=== PATIENT | female | born 1960 ===

== ENCOUNTER 2019-02-14 06:37 | Inpatient (IN) | payer BC ==
--- NOTE | 2019-02-03 19:13 | HP ---
HISTORY AND PHYSICAL: DATE OF ADMISSION/SURGERY: 02/14/19 DATE OF OFFICE VISIT: 02/03/19 SURGEON: Laxmi Olson MD * (DICTATED BY LUIS OLIVAS) PROCEDURE: Bilateral total knee arthroplasties. CHIEF COMPLAINT: Bilateral knee pain. HISTORY OF PRESENT ILLNESS: Ms. Lee is a 58-year-old female with complaints of bilateral knee pain secondary to end-stage osteoarthritis. She has failed conservative treatment and elected to proceed with bilateral total knee arthroplasties. PAST MEDICAL HISTORY: Denies. PAST SURGICAL HISTORY: Two prior right knee surgeries, a right carpal tunnel release, and a tubal ligation. CURRENT MEDICATIONS: Tramadol as needed. ALLERGIES: No known drug allergies. FAMILY HISTORY: Stroke and diabetes. SOCIAL HISTORY: She is a 58-year-old female. She lives with her . She does not smoke or use drugs. Uses occasional alcohol. REVIEW OF SYSTEMS: A complete 14-point review of systems was reviewed with the patient. It was all negative or noncontributory. She denies history of DVT, PE , hepatitis, HIV, or anesthesia problems. PHYSICAL EXAMINATION GENERAL: She is well developed, well nourished, in no acute distress. VITAL SIGNS: She stands 70 inches tall, weighs 193 pounds. Her blood pressure is 133/86 and her heart rate is 74. HEENT: Normocephalic, atraumatic. NECK: Supple. No palpable lymph nodes. PULMONARY: The lungs are clear to auscultation bilaterally. CARDIO: Regular rate and rhythm. Strong S1, S2. ABDOMEN: Soft, nontender, nondistended. NEUROLOGICAL: She is alert and oriented x3. MUSCULOSKELETAL: Bilateral lower extremities: The skin is intact. There are no open wounds or abrasions. She has moderate bilateral knee effusions, tenderness over the medial and lateral joint lines of both knees. She walks with an antalgic- type gait. She has 2+ dorsalis pedis pulse, intact sensation. She is able to dorsiflex and plantarflex her bilateral lower extremities. ASSESSMENT AND PLAN: Ms. Lee is a 58-year-old female with bilateral knee pain secondary to end-stage osteoarthritis. She has failed conservative treatment and elected to proceed with bilateral total knee arthroplasties. The surgery is scheduled for 02/14/[address] Olson discussed the risks and benefits of the surgery at today's visit and all of her questions were answered. She will follow up with Dr. Olson 2 weeks after the surgery. LUIS COATES [id number]/[facility] #: [id number] PARKER
[~2019-02-14 06:37] MED LIST: Buffered Lidocaine 1% SYRIN* 1 ML/SYRINGE INTRADERM ONE; Dexamethasone TAB* 4 MG PO ONE; DiMENhydriNATE IV* 50 MG/ML VIAL IV PUSH PRN; Famotidine IV* 10 MG/ML 2 ML (20 mg) IV ONE; Gabapentin CAP(*) 300 MG PO ONE; Lactated Ringers 1000 ML Bag* 1,000 ML IV SCH; Morphine 4 MG/ML VIAL (1 ml) 4 MG/ML VIAL IV PRN; Naloxone* 0.4 MG/ML 1 ML VIAL IV PRN; Ondansetron TAB* 4 MG PO ONE; PROCHLORPERAZINE INJ 5 MG/ML 2 ML VIAL IV PRN; Scopolamine 1.5 mg* PATCH TRANSDERM PRN; Tranexamic Acid 1,000 MG in NS 0.9% 50 ML* (outpatient use) IV SCH; fentaNYL* 50 MCG/ML 2 ML VIAL (100 MCG VIAL) IV PRN; oxyCODONE/Acetamin 5/325 MG* TAB PO PRN
--- OUTSIDE RECORDS SUMMARY | 2019-02-14 06:42 | XMS REPORT | Continuity of Care Document ---
:1960 External Reference #:[id number] Author Name Marimar Rodriguez Care Team Providers Name Role Phone Jose L Sharpe MD Primary Care Physician Unavailable Payers Date Identification Numbers Payment Provider Subscriber Policy Number: [id number] BS Facets Nicole Lee PayID: [id number] [address] [address] [place] [address] Advance Directives Description No Information Available Problems Date Description Provider Status Onset: 09/05/2018 Localized, primary osteoarthritis Laxmi Olson M.D. Active Onset: 09/23/2018 Localized, secondary osteoarthritis Laxmi Olson M.D. Active Family History Date Family Member(s) Observation Comments General Diabetes General Hypertension Onset: () General Stroke General Cancer General Rheumatoid Arthritis Social History Type Date Description Comments Sex Unknown Lives With Tobacco Use Start: Unknown Patient has never smoked Smoking Status Reviewed: 02/03/19 Patient has never smoked Allergies, Adverse Reactions, Alerts Description No Known Drug Allergies Medications Medication Date Status Form Strength Qnty SIG Indications Ordering Provider Tramadol HCL Active Tablets 50mg 60tabs 1 tab Laxmi 019 every 8 WesleyMarietta bookerDKelvin hours as needed for pain Tylenol Active Unknown 000 Aleve Active Unknown 000 Percocet Hx Tablets 5-325mg 42tabs 1-2 by Laxmi 018 - mouth Ariana Olson every 6 019 hours as needed pain Keflex Hx Capsules 500mg 20caps 1 by Laxmi 018 - mouth 4 WesleyAriana booker times a 019 day for 5 days Aspirin Hx Tablets 325mg 14tabs take 1 by Laxmi 018 - mouth Ariana Olson once a 019 day for two weeks Meloxicam Hx Tablets 15mg 30tabs 1 by M17.0 Laxmi Braga - mouth Ariana Olson every day 019 Tramadol HCL Hx Tablets 50mg 60tabs 1 tablet M17.0 Laxmi 018 - by mouth Ariana Olson every 6 019 hours as needed pain No Active Hx Unknown Medications 016 - 018 Hydrocodone-Ac Hx Tablets 5-325mg 1 by Unknown etaminophen 000 - mouth every 4-6 016 hours prn. Medications Administered in Office Medication Date Status Form Strength Qnty SIG Indications Ordering Provider Depomedrol Administered Injection Laxmi 40MG Omi Olson M.D. Depomedrol Administered Injection Laxmi 40MG Omi Olson M.D. Immunizations Description No Information Available Vital Signs Date Vital Result Comment 02/03/2019 1:12pm Height 70 inches 5'10" Weight 193.00 lb BP Systolic 133 mmHg BP Diastolic 86 mmHg Respiratory Rate 16 /min Pain Level 3 BMI (Body Mass Index) 27.7 kg/m2 12/02/2018 2:48pm Height 70 inches 5'10" Weight 186.00 lb Heart Rate 80 /min BP Systolic 150 mmHg BP Diastolic 80 mmHg BMI (Body Mass Index) 26.7 kg/m2 10/31/2018 1:50pm Height 69.5 inches 5'9.50" Heart Rate 76 /min BP Systolic 142 mmHg BP Diastolic 84 mmHg Respiratory Rate 18 /min Body Temperature 97.8 F Pain Level 3 09/23/2018 2:14pm Height 69.5 inches 5'9.50" Weight 194.00 lb Heart Rate 80 /min Respiratory Rate 16 /min Pain Level 4 BMI (Body Mass Index) 28.2 kg/m2 09/05/2018 4:21pm Height 69.5 inches 5'9.50" Weight 194.00 lb Heart Rate 76 /min BP Systolic 160 mmHg BP Diastolic 98 mmHg BMI (Body Mass Index) 28.2 kg/m2 12/04/2016 2:26pm Height 71 inches 5'11" Weight 187.00 lb Pain Level 0 BMI (Body Mass Index) 26.1 kg/m2 10/30/2016 2:09pm Height 71 inches 5'11" Respiratory Rate 17 /min Pain Level 5 09/29/2016 11:17am Height 71 inches 5'11" Heart Rate 73 /min BP Systolic Sitting 168 mmHg BP Diastolic Sitting 91 mmHg Pain Level 2 Results Test Date Facility Test Result H/L Range Note Laboratory test 10/18/2018 [facility] Surgical SEE RESULT [address] [place] [address] [phone] 1 SEE RESULT BELOW Name: REJINICOLE : [address]: Laxmi Olson MD Acct: [id number] Unit: [id number] AGE: 58 Location: OR Re10/18/18 SEX: F Status: [facility] SPEC: [id number] NABEEL: 10/18/18- SUBM DR: Laxmi Olson MD REQ: [id number] RECD: 10/18/18 STATUS: SOUT _ ORDERED: LEVEL 1 FINAL DIAGNOSIS Knee, right, hardware removal: Foreign body (orthopedic hardware) (gross diagnosis) PRE-OPERATIVE DIAGNOSIS Pain in right knee, effusion right knee, osteoarthritis right knee. GROSS DESCRIPTION The specimen is received fresh labeled, Right Knee Hardware, and consists of a 5.0 by up to 0.6 cm jacob metallic partially threaded Cam-headed screw. Received separately in the same container is a 1.5 x 1.4 x 0.2 cm jacob metallic annular fragment with multiple attached silver metallic pins ranging from 0.6 x 0.1 cm to 1.6 x 0.2 cm. The following inscription is identified: [id number]. Per established hospital medical staff protocol, no tissue is submitted. Gross only. Signed by and Reported on: Oj Marshall MD [id number] END OF REPORT DEPARTMENT OF PATHOLOGY, [address] [place] [address] Oj Marshall M.D. Director [facility] # [id number] Procedures Date Code Description Status 10/18/2018 Removal Implant Deep Wire,Screw Nail,Karl Or Plate Completed 10/18/2018 Removal Implant Deep Wire,Screw Nail,Karl Or Plate Completed 10/18/2018 Removal Implant Deep Wire,Screw Nail,Karl Or Plate Completed 09/23/2018 Inject/Drain Joint/Bursa Major W/O US Completed 09/05/2018 Inject/Drain Joint/Bursa Major W/O US Completed Encounters Type Date Location Provider Dx Diagnosis Office Visit 09/23/2018 Orthopedic Laxmi Wesley, M25.562 Pain in left knee 2:15p [facility]. M25.561 Pain in right knee M25.461 Effusion, right knee M25.462 Effusion, left knee M17.31 Unilateral post-traumatic osteoarthritis, right knee M17.12 Unilateral primary osteoarthritis, left knee T85.848A Pain due to other internal prosth dev/grft, init Office Visit 09/05/2018 4:00p Orthopedic Services Laxmi Olson, M25.562 Pain in left Of [facility]AKelvin Joyner. knee M25.561 Pain in right knee M25.461 Effusion, right knee M25.462 Effusion, left knee M17.31 Unilateral post-traumatic osteoarthritis, right knee M17.12 Unilateral primary osteoarthritis, left knee Office Visit 12/04/2016 2:30p Orthopedic Boubacar S93.401D Sprain of Services [facility] Ariana Garcia unspecified C.[facility]. ligament of right ankle, subs encntr M20.5x9 Other deformities of toe(s) (acquired), unspecified foot Office Visit 10/30/2016 2:00p Orthopedic Boubacar S93.401D Sprain of [facility] Ariana Garcia unspecified C.M.A. ligament of right ankle, subs encntr M20.5x9 Other deformities of toe(s) (acquired), unspecified foot Office Visit 09/29/2016 11:00a Orthopedic Boubacar S93.401A Sprain of [facility] Garcia unspecified C.M.A. ligament of right ankle, init encntr Plan of Treatment Future Appointment(s):02/27/2019 2:15 pm - Laxmi Olson M.D. at [facility]02/14/2019 8:00 am - Edmund Brito PA-C at [facility]02/14/2019 8:00 am - LUIS Mclaughlin at [facility]02/14/2019 8:00 am - Laxmi Olson M.D. at [facility]02/03/2019 - Laxmi Olson M.D.M17.0 Bilateral primary osteoarthritis of kneeFollow up:Follow up: 2 weeks after tkogkfxF53.561 Pain in right kneeM25.562 Pain in left knee
--- OUTSIDE RECORDS SUMMARY | 2019-02-14 06:42 | XMS REPORT | Continuity of Care Document ---
:1960 External Reference #:[id number] Author Name LUIS Mclaughlin Address [address] , [place] [address] Care Team Providers Name Role Phone Jose L Sharpe MD Primary Care Physician Unavailable Payers Date Identification Numbers Payment Provider Subscriber Policy Number: [id number] BS Facets Nicole Mendoza PayID: [id number] [address] [address] [place] [address] Advance Directives Description No Information Available Problems [...] 60tabs 1 tab Laxmi 019 every 8 Ariana Olson hours as needed for pain Tylenol Active Unknown 000 Aleve Active Unknown 000 Percocet Hx Tablets 5-325mg 42tabs 1-2 by Laxmi 018 - mouth Ariana Olson every 6 019 hours as needed pain Keflex Hx Capsules 500mg 20caps 1 by Laxmi 018 - mouth 4 Ariana Olson times a 019 day for 5 days Aspirin Hx Tablets 325mg 14tabs take 1 by Laxmi Braga - everardo Olson M.D. once a 019 day for two weeks Meloxicam Hx Tablets 15mg 30tabs 1 by Magui0 Laxmi Braga - everardo Olson M.D. every day 019 Tramadol HCL Hx Tablets [...] Date Facility Test Result H/L Range Note CBC Auto Diff 02/03/2019 [facility] White Blood 7.0 10^3/uL N 3.5-10.[address] [place] [address] [phone] Red Blood Count 4.54 10^6/uL N 4.00-5.40 Hemoglobin 13.9 g/dL N 12.0-16.0 Hematocrit 41 % N 35-47 Mean Corpuscular Volume 91 fL N 80-97 Mean Corpuscular Hemoglobin 31 pg N 27-31 Mean Corpuscular HGB Conc 33 g/dL N 31-36 Red Cell Distribution Width 13 % N 10.5-15 Platelet Count 214 10^3/uL N 150-450 Mean Platelet Volume 8.1 fL N 7.4-10.4 Abs Neutrophils 4.7 10^3/uL N 1.5-7.7 Abs Lymphocytes 1.8 10^3/uL N 1.0-4.8 Abs Monocytes 0.3 10^3/uL N 0-0.8 Abs Eosinophils 0.1 10^3/uL N 0-0.6 Abs Basophils 0 10^3/uL N 0-0.2 Abs Nucleated RBC 0 10^3/uL Granulocyte % 66.6 % Lymphocyte % 25.8 % Monocyte % 4.9 % Eosinophil % 2.0 % Basophil % 0.7 % Nucleated Red Blood Cells % 0 Comp Metabolic Panel 02/03/2019 [facility] Sodium 142 mmol/L N 135-[address] [place] [address] [phone] Potassium 3.7 mmol/L N 3.5-5.0 Chloride 105 mmol/L N 101-111 Co2 Carbon Dioxide 31 mmol/L N 22-32 Anion Gap 6 mmol/L N 2-11 Glucose 128 mg/dL High 70-100 Blood Urea Nitrogen 14 mg/dL N 6-24 Creatinine 0.79 mg/dL N 0.51-0.95 BUN/Creatinine Ratio 17.7 N 8-20 Calcium 9.5 mg/dL N 8.6-10.3 Total Protein 6.9 g/dL N 6.4-8.9 Albumin 4.4 g/dL N 3.2-5.2 Globulin 2.5 g/dL N 2-4 Albumin/Globulin Ratio 1.8 N 1-3 Total Bilirubin 0.40 mg/dL N 0.2-1.0 Alkaline Phosphatase 69 U/L N 34-104 Alt 17 U/L N 7-52 Ast 18 U/L N 13-39 Egfr Non- 75.0 >60 Egfr 90.8 >60 1 Inr/Protime 02/03/2019 [facility] Inr 0.95 N 0.77-1.[address] [place] [address] [phone] Laboratory test 02/03/2019 [facility] Partial 31.5 seconds N 26.0-36.[address] [place] [address] PTT [phone] Type & Screen 02/03/2019 [facility] Patient O Positive [address] [place] [address] [phone] Antibody Screen NEGATIVE Urinalysis Profile 02/03/2019 [facility] Urine Color Yellow [address] [place] [address] [phone] Urine Appearance Clear Urine Specific Climax 1.016 N 1.010-1.030 Urine pH 6.0 N 5-9 Urine Urobilinogen Negative Negative Urine Ketones Negative Negative Urine Protein Negative Negative Urine Leukocytes 2+ Abnormal Negative Urine Blood Negative Negative Urine Nitrite Negative Negative Urine Bilirubin Negative Negative Urine Glucose Negative Negative Urine White Blood Cell Trace(0-5/hpf) Absent Urine Red Blood Cell Trace(0-2/hpf) Absent Urine Bacteria Absent Absent Urine Squamous Epithelial Cell Present Abnormal Absent Urine Culture And 02/03/2019 [facility] Urine Culture SEE RESULT [address] [place] [address] [phone] Laboratory test 10/18/2018 [facility] Surgical SEE RESULT [address] [place] [address] [phone] 1 Because ethnic data is not always readily available, this report includes an eGFR for both -Americans and non- Americans. The National Kidney Disease Education Program (NKDEP) does not endorse the use of the MDRD equation for patients that are not between the ages of 18 and 70, are , have extremes of body size, muscle mass, or nutritional status, or are non- or non-. According to the National Kidney Foundation, irrespective of diagnosis, the stage of the disease is based on the level of kidney function: Stage Description GFR(mL/min/1.73 m(2)) 1 Kidney damage with normal or decreased GFR 90 2 Kidney damage with mild decrease in GFR 60-89 3 Moderate decrease in GFR 30-59 4 Severe decrease in GFR 15-29 5 Kidney failure <15 (or dialysis) 2 SEE RESULT BELOW Name: NICOLE MENDOZA : [address]: Laxmi Olson MD Acct: [id number] Unit: [id number] AGE: 58 Location: [facility] Re02/03/19 SEX: F Status: REG REF SPEC: [id number] NABEEL: 02/03/19-145[facility] DR: Laxmi Olson MD REQ: [id number] RECD: 02/03/19 STATUS: HERMELINDA MCKENNA DR: Jose L Sharpe MD _ SOURCE: URINE SPDES: ORDERED: Urine Culture QUERIES: Urine Source: Random Procedure Result Reported Site Urine Culture Final 02/04/19- 1256 ML No Growth (<1,000 CFU/mL) * ML - Main Lab . END OF REPORT DEPARTMENT OF PATHOLOGY, [address] [place] [address] Oj Marshall M.D. Director [facility] # [id number] 3 SEE RESULT BELOW Name: NICOLE MENDOZA : [address]: Laxmi Olson MD Acct: [id number] Unit: [id number] AGE: 58 Location: OR Re10/18/18 SEX: F Status: [facility] [place] SPEC: [id number] NABEEL: 10/18/18- SUBM DR: Laxmi Olson MD REQ: [id number] RECD: 10/18/18 STATUS: SOUT _ ORDERED: LEVEL [...] 0.2 cm. The following inscription is identified: [id number]. Per established hospital medical staff protocol, no tissue is submitted. Gross only. Signed by and Reported on: Oj Marshall MD [id number] END OF REPORT DEPARTMENT OF PATHOLOGY, [address] [place] [address] Oj Marshall M.D. Director [facility] # [id number] Procedures Date Code Description Status 10/18/2018 Removal Implant Deep Wire,Screw Nail,Karl Or Plate Completed 10/18/2018 Removal Implant Deep Wire,Screw Nail,Karl Or Plate Completed 10/18/2018 Removal Implant Deep Wire,Screw Nail,Karl Or Plate Completed 09/23/2018 Inject/Drain Joint/Bursa Major W/O US Completed 09/05/2018 Inject/Drain Joint/Bursa Major W/O US Completed Encounters Type Date Location Provider Dx Diagnosis Office Visit 09/23/2018 Orthopedic Laxmi Olson, M25.562 Pain in left knee 2:15p Services [facility] [address] M25.561 Pain in right knee M25.461 Effusion, right knee M25.462 Effusion, left knee M17.31 Unilateral post-traumatic osteoarthritis, right knee M17.12 Unilateral primary osteoarthritis, left knee T85.848A Pain due to other internal prosth dev/grft, init Office Visit 09/05/2018 4:00p Orthopedic Services Laxmi Olson M25.562 Pain in left Of [address] knee M25.561 Pain in right knee M25.461 [...] unspecified foot Office Visit 09/29/2016 11:00a Orthopedic oBubacar S93.401A Sprain of Services Of Ariana Garcia unspecified C.M.A. ligament of right ankle, init encntr Plan of Treatment Future Appointment(s):02/27/2019 2:15 pm - Laxmi Olson M.D. at [facility].02/14/2019 8:00 am - Edmund Brito PA-C at [facility].02/14/2019 8:00 am - LUIS Mclaughlin at [facility].02/14/2019 8:00 am - Laxmi Olson M.D. at [facility].02/03/2019 - Laxmi Olson M.D.M17.0 Bilateral primary osteoarthritis of kneeFollow up:Follow up: 2 weeks after jqzkhzxE40.561 Pain in right kneeM25.562 Pain in left knee
[2019-02-14] MEDS ORDERED: KETAMINE HCL* 50 MG/ML 10 ML VIAL ONE (06:47)
[2019-02-14] MEDS ORDERED: Midazolam* 1 MG/ML 10 ML VIAL (10 MG) ONE ×2 (06:47→08:07)
[2019-02-14] MEDS ORDERED: fentaNYL* 50 MCG/ML 2 ML VIAL (100 MCG VIAL) ONE (06:47)
[2019-02-14] MEDS ORDERED: Bupivacaine 0.5%* 50 ML VIAL ONE (06:48)
[2019-02-14] MEDS ORDERED: Dexamethasone TAB* 4 MG ONE (07:06)
[2019-02-14] MEDS ORDERED: ceFAZolin 2 GM in NS PREMIX(*) 2 GM/100 ML BAG IVPB ONE (07:06)
[2019-02-14] MEDS ORDERED: Gabapentin CAP(*) 300 MG ONE (07:06)
[2019-02-14] MEDS ORDERED: Ondansetron ODT TAB* 4 MG ONE (07:06)
[2019-02-14] MEDS ORDERED: Famotidine IV* 10 MG/ML 2 ML (20 mg) ONE (07:06)
[2019-02-14] MEDS ORDERED: ceFAZolin 1 GM in Dextrose (*) 0 GM/0 ML BAG IVPB ONE (11:07)
[2019-02-14] MEDS ORDERED: diPHENhydraMINE IV* 50 MG/ML 1 ml VIAL (BENADRYL) IV PRN (11:28)
[2019-02-14] MEDS ORDERED: Morphine 4 MG/ML VIAL (1 ml) 4 MG/ML VIAL IV PRN (11:28)
[2019-02-14] MEDS ORDERED: Magnesium Hydroxide LIQ* 30 ML UDC PO PRN (11:28)
[2019-02-14] MEDS ORDERED: oxyCODONE/Acetamin 5/325 MG* TAB PO PRN (11:28)
[2019-02-14] MEDS ORDERED: Bisacodyl SUPP* 10 MG SUPP PR PRN (11:28)
[2019-02-14] MEDS ORDERED: traMADol TAB* 50 MG PO PRN (11:28)
[2019-02-14] MEDS ORDERED: Cyclobenzaprine TAB* 10 MG PO PRN (11:28)
[2019-02-14] MEDS ORDERED: Polyethylene Glycol 3350* 17 GM PACKET PO PRN (11:28)
[2019-02-14] MEDS ORDERED: Ondansetron INJ* 2 MG/ML VIAL IV PRN (11:28)
[2019-02-14] MEDS ORDERED: Ondansetron TAB* 4 MG PO PRN (11:28)
[2019-02-14] MEDS ORDERED: Lactated Ringers 1000 ML Bag* 1,000 ML IV SCH (12:00)
[2019-02-14] MEDS ORDERED: Acetaminophen TAB* 325 MG PO SCH (12:00)
[2019-02-14] MEDS ORDERED: ceFAZolin 1 GM ADVAN(*) 1 GM in NS 0.9% 50 ML* 50 ML IVPB SCH (12:00)
[2019-02-14] MEDS ORDERED: Propofol* 1,000 MG/100 ML BTL ONE (12:26)
[2019-02-14] MEDS ORDERED: Propofol* 10 MG/ML 20 ML BTL ONE (12:26)
[2019-02-14] MEDS ORDERED: Bupivacaine 0.25% EPI 200,000* 30 ML SDV ONE (12:26)
[2019-02-14] MEDS ORDERED: Ketorolac INJ* 30 MG/ML 1 ML VIAL ONE (12:26)
[2019-02-14] MEDS ORDERED: PROCHLORPERAZINE INJ 5 MG/ML 2 ML VIAL ONE (12:26)
[2019-02-14] MEDS ORDERED: Bupivacaine 0.5% SDV PF* 30ML VIAL ONE (12:26)
[2019-02-14] MEDS ORDERED: ceFAZolin VIAL(*) VIAL ONE (12:38)
[2019-02-14] MEDS ORDERED: Morphine 10 MG/ML VIAL (1 ml) ONE (12:39)
[2019-02-14] MEDS ORDERED: hydrALAZINE IV* 20 MG/ML VIAL ONE (12:41)
--- NOTE | 2019-02-14 13:58 | PN ---
Subjective Date of Service: 02/14/19 Interval History: Hospitalist Consult Note ID: 58 yo F without sig PMH other than blt knee pain and OA who presented 02/14/19 for elective blt TKR. Medicine is consulted for new LBBB in intraopertaive setting. Pt prior EKG from 02/03/19 showed NSR with "minimal CECILIO" per Dr. Claire, who ultimately was consulted for cardiac clearance and found low risk for a low risk procedure. She had no c/o pain in preoperative setting. Pt was seen postoperatively and is still awaking but denies chest pain, SOB, palps or any complaint other than knee pain. EKG postoperatively shows new bradycardia with LBBB and wander. Stat trop is ordered and pending, plan to xfer pt to SS when stable and will be placed on tele. Medications: None Family Hx: Pending Social Hx: Lives at home with , never tob user, social ETOH, never illicits Allergies: NKDA Objective Active Medications: Acetaminophen (Tylenol Tab*) 975 mg PO Q8H JANE Apixaban (Eliquis*) 2.5 mg PO BID JANE Bisacodyl (Dulcolax Supp*) 10 mg MD DAILY PRN PRN Reason: constipation Cyclobenzaprine HCl (Flexeril Tab*) 10 mg PO TID PRN PRN Reason: SPASMS Dexamethasone (Decadron Tab*) 8 mg PO ONCE ONE Stop: 02/14/19 06:01 Last Admin: 02/14/19 07:18 Dose: 8 mg Dimenhydrinate (Dramamine Iv*) 12.5 mg IV PUSH ONCE PRN PRN Reason: NAUSEA/VOMITING Diphenhydramine HCl (Benadryl Iv*) 12.5 mg IV Q6H PRN PRN Reason: PRURITIS Docusate Sodium (Colace Cap*) 100 mg PO BID JANE Famotidine (Pepcid Iv*) 20 mg IV ONCE ONE Stop: 02/14/19 06:01 Last Admin: 02/14/19 07:18 Dose: 20 mg Fentanyl Citrate (Fentanyl*) 25 mcg IV Q3M PRN PRN Reason: PAIN - MODERATE Gabapentin (Neurontin Cap(*)) 600 mg PO ONCE ONE Stop: 02/14/19 06:01 Last Admin: 02/14/19 07:18 Dose: 600 mg Lactated Ringer's (Lactated Ringers 1000 Ml Bag*) 1,000 mls @ 125 mls/hr IV PER [facility] Tranexamic Acid 1,000 mg/ (Sodium Chloride) 60 mls @ 120 mls/hr IV ONCE Stop: 02/14/19 23:59 Cefazolin Sodium 1 gm/ Sodium (Chloride) 50 mls @ 200 mls/hr IVPB Q8H JANE Stop: 02/15/19 04:14 Lactated Ringer's (Lactated Ringers 1000 Ml Bag*) 1,000 mls @ 100 mls/hr IV PER [facility] Lactulose (Lactulose*) 30 ml PO Q6H PRN PRN Reason: constipation Lidocaine/Sodium Bicarbonate (Buffered Lidocaine 1% Syrin*) 0.2 ml INTRADERM ONCE ONE Stop: 02/13/19 10:50 Last Admin: 02/14/19 07:17 Dose: 0.2 ml Magnesium Hydroxide (Milk Of Magnesia Liq*) 30 ml PO BID JANE Magnesium Hydroxide (Milk Of Magnesia Liq*) 30 ml PO Q6H PRN PRN Reason: constipation Morphine Sulfate (Morphine 4 Mg/Ml Vial (1 Ml)) 3 mg IV Q5M PRN PRN Reason: PAIN Morphine Sulfate (Morphine 4 Mg/Ml Vial (1 Ml)) 2 mg IV Q2H PRN PRN Reason: PAIN Naloxone HCl (Narcan*) 0.08 mg IV Q2M PRN PRN Reason: severe induced resp depression Ondansetron HCl (Zofran Tab*) 4 mg PO ONCE ONE Stop: 02/13/19 10:50 Last Admin: 02/14/19 07:17 Dose: 4 mg Ondansetron HCl (Zofran Inj*) 4 mg IV Q6H PRN PRN Reason: nausea Ondansetron HCl (Zofran Tab*) 4 mg PO Q6H PRN PRN Reason: NAUSEA Oxycodone HCl (Roxycodone Tab*) 10 mg PO Q4H PRN PRN Reason: SEVERE PAIN Oxycodone/Acetaminophen (Percocet 5/325 Tab*) 1 tab PO ONCE PRN PRN Reason: PAIN - MODERATE Oxycodone/Acetaminophen (Percocet 5/325 Tab*) 1 tab PO Q4H PRN PRN Reason: PAIN Oxycodone/Acetaminophen (Percocet 5/325 Tab*) 2 tab PO Q4H PRN PRN Reason: PAIN Pharmacy Profile Note (Scopolamine Patch Remove*) 1 note PATCH OFF Q72H ONE Stop: 02/17/19 06:22 Polyethylene Glycol/Electrolytes (Miralax*) 17 gm PO DAILY PRN PRN Reason: Constipation Prochlorperazine Edisylate (Compazine Inj*) 5 mg IV ONCE PRN PRN Reason: NAUSEA/VOMITING Scopolamine (Transderm-Scop 1.5 Mg Patch*) 1 patch TRANSDERM Q72H PRN PRN Reason: Nausea/Vomiting Tramadol HCl (Ultram*) 50 mg PO Q6H PRN PRN Reason: PAIN Vital Signs - 8 hr 02/14/19 02/14/19 02/14/19 07:12 12:53 12:54 Temperature 97.0 F Pulse Rate 75 54 53 Respiratory 16 Rate Blood Pressure 188/100 96/55 (mmHg) O2 Sat by Pulse 98 100 99 Oximetry 02/14/19 02/14/19 02/14/19 12:55 13:00 13:02 Temperature Pulse Rate 60 48 51 Respiratory 10 12 Rate Blood Pressure 97/63 86/57 (mmHg) O2 Sat by Pulse 88 100 100 Oximetry 02/14/19 02/14/19 02/14/19 13:05 13:10 13:15 Temperature Pulse Rate 54 58 50 Respiratory 16 13 15 Rate Blood Pressure 100/67 104/66 101/66 (mmHg) O2 Sat by Pulse 100 100 100 Oximetry 02/14/19 02/14/19 02/14/19 13:17 13:21 13:26 Temperature Pulse Rate 60 50 47 Respiratory 16 19 10 Rate Blood Pressure 98/70 97/80 (mmHg) O2 Sat by Pulse 100 98 100 Oximetry 02/14/19 02/14/19 13:30 13:31 Temperature Pulse Rate 54 51 Respiratory 23 10 Rate Blood Pressure 115/67 (mmHg) O2 Sat by Pulse 99 100 Oximetry Oxygen Devices in Use Now: Nasal Cannula Appearance: Drousy woman in NAD, pleasant and does follow commands Neck: NL Appearance and Movements; NL JVP Respiratory: Symmetrical Chest Expansion and Respiratory Effort, Clear to Auscultation Cardiovascular: - - bradycardia to 50s, S1S2, soft heart sounds, no ectopy and no appreciable gross murmur or JVD Abdominal: NL Sounds; No Tenderness; No Distention, No Hepatosplenomegaly Lymphatic: No Cervical Adenopathy Extremities: No Edema Skin: No Rash or Ulcers Neurological: - - Drowsy but can answer questions Result Diagrams: 02/14/19 14:14 Assess/Plan/Problems-Billing Assessment: 58 yo F without sig PMH other than blt knee pain and OA who presented 02/14/19 for elective blt TKR. Medicine is consulted for new LBBB in intraopertaive setting - Patient Problems (1) Left bundle branch block (LBBB) on electrocardiogram Current Visit: Yes Status: Acute Code(s): I44.7 - LEFT BUNDLE-BRANCH BLOCK, UNSPECIFIED SNOMED Code(s): 342300103 Comment: - New compared to prior, patient is CP free - Ddx structural or rate related, possible new cardiac event- appears sustained , rarely hyperK - Will check trop and K, will watch pt carefully on monitor - Will order echo - Trend trop overnight - Cardiology aware of pt, Dr. Claire to be updated on clincial status changes. (2) Status post bilateral knee replacements Current Visit: Yes Status: Acute Code(s): Z96.653 - PRESENCE OF ARTIFICIAL KNEE JOINT, BILATERAL SNOMED Code(s): 635933421 Comment: -Pain mgmt and DVT ppx per ortho Status and Disposition: Inpatient, we will continue to follow patient, thank you for this interesting consult, we will follow with you
[2019-02-14 14:35] LABS: Troponin I 0.01 ng/mL (<0.04)
[2019-02-14 15:02] LABS: Calcium 8.4 mg/dL (8.6-10.3); EGFR African American 120.1 (>60); EGFR Non-African American 99.2 (>60); Potassium 4.3 mmol/L (3.5-5.0)
--- NOTE | 2019-02-14 15:41 | ECHO ---
Patient: ELIZABETH MENDOZA [facility] Rec#: [id number] : 1960 Date: 02/14/2019 Age: 58y Height: 178 cm / 70.1 in Weight: 89 kg / 196.2 lbs Sex: F BSA: 2.07 Room#: PACU Admit Date#: 02/14/2019 Type: Inpatient Referring: Yuko Dent MD Reading: Matthew Claire MD Mill Attendant: Carri Pinon,RDCS,RDMS CC: Jose L Sharpe MD Transthoracic Echocardiogram Indication: ABN EKG BP: 121/67 HR: 45 Rhythm: Bradycardia Findings History: S/P bilateral knee arthroplasty. Technical Comments: The study quality is good. Left Ventricle: The left ventricular chamber size is normal. Mild concentric left ventricular hypertrophy is observed. Global left ventricular wall motion and contractility are within normal limits. There is normal left ventricular systolic function. The estimated ejection fraction is 60-65%. There is no consistent Doppler evidence of clinically significant diastolic dysfunction. Left Atrium: The left atrial chamber size is normal. Right Ventricle: The right ventricle is slightly dilated. The right ventricular global systolic function is mildly reduced. Right Atrium: The right atrial cavity size is normal. Aortic Valve: The aortic valve is trileaflet. Systolic excursion of the aortic valve is normal. There is no evidence of aortic regurgitation. There is no evidence of aortic stenosis. Mitral Valve: The mitral valve leaflets appear normal. There is no evidence of mitral regurgitation. There is no evidence of mitral stenosis. Tricuspid Valve: The tricuspid valve leaflets are normal. There is trace tricuspid regurgitation. No pulmonary hypertension is noted. Pulmonic Valve: The pulmonic valve structure is not well visualized. There is a trace pulmonic regurgitation. Pericardium: There is no significant pericardial effusion. Aorta: The aortic root appears normal. There is no dilatation of the aortic arch. Pulmonary Artery: The main pulmonary artery is not well visualized. Venous: The inferior vena cava appears normal in size. There is a greater than 50% respiratory change in the inferior vena cava dimension. Summary: There was not any prior study for comparison. Conclusions Mild concentric left ventricular hypertrophy is observed. Global left ventricular wall motion and contractility are within normal limits. The estimated ejection fraction is 60-65%. The right ventricle is slightly dilated. The right ventricular global systolic function is mildly reduced. There is no evidence of aortic regurgitation. There is no evidence of aortic stenosis. There is no evidence of mitral regurgitation. There is trace tricuspid regurgitation. No pulmonary hypertension is noted. There is no significant pericardial effusion. Measurements Name Value Normal Range RVIDd (AP) 2D 2.9 cm (0.9 - 2.6) RVDdMajor (2D) 3.6 cm (2.2 - 4.4) RAd ISD 4CH 4.9 cm (3.4 - 4.9) RA (A4C)W 4.1 cm (2.9 - 4.6) IVSd (2D) 1.2 cm (0.6 - 1) LVPWd (2D) 1.2 cm (0.6 - 1) LVIDd (2D) 4.2 cm (3.6 - 5.4) LVIDs (2D) 2 cm - LV FS (2D) 53 % (25 - 45) Aortic Annulus 2.1 cm (1.4 - 2.6) Ao root diameter (2D) 3.1 cm (2.1 - 3.5) Ascending Ao 3.3 cm (2.1 - 3.4) Aortic arch 3.1 cm (1.8 - 3.4) LA dimension (AP) 2D 3.4 cm (2.3 - 3.8) LAd ISD 4CH 5 cm (2.9 - 5.3) LA ISD 4CH W 4.3 cm (2.5 - 4.5) Name Value Normal Range LA ESV BP (A/L) index 29 ml/m2 - Name Value Normal Range MV E-wave Vmax 0.8 m/sec - MV deceleration time 227 msec - MV A-wave Vmax 0.8 m/sec - MV E:A ratio 1 ratio - P. vein S-wave Vmax 0.5 m/sec - P. vein D-wave Vmax 0.4 m/sec - P. vein S:D Vmax ratio 1.5 ratio - P. vein A-wave duration 111 msec - LV septal e' Vmax 0.06 m/sec - LV lateral e' Vmax 0.07 m/sec - LV E:e' septal ratio 13 ratio - LV E:e' lateral ratio 12 ratio - Name Value Normal Range AV Vmax 1.1 m/sec - AV VTI 36 cm - AV peak gradient 5 mmHg - AV mean gradient 3 mmHg - LVOT Vmax 1 m/sec - LVOT VTI 31 cm - LVOT peak gradient 4 mmHg - LVOT mean gradient 2 mmHg - MITCH Vmax 0.9 m/sec - Name Value Normal Range TR Vmax 2.2 m/sec - TR peak gradient 20 mmHg - RAP 3 mmHg - RVSP 23 mmHg - IVC diameter 1.6 cm - Name Value Normal Range PV Vmax 0.8 m/sec - PV peak gradient 2.6 mmHg -
[2019-02-14] MEDS ORDERED: Scopolamine 1.5 mg* PATCH ONE (16:13)
[2019-02-14] MEDS ORDERED: Ondansetron INJ* 2 MG/ML VIAL ONE (16:15)
--- NOTE | 2019-02-14 18:20 | CONS ---
CC: Dr. Jose L Sharpe * CARDIOLOGY CONSULTATION: DATE OF CONSULT: 02/14/19 INDICATION FOR CONSULTATION: Left bundle-branch block. HISTORY OF PRESENT ILLNESS: The patient is a 58-year-old female who underwent bilateral knee replacement surgeries earlier today. In the operating room, it was noted that her EKG changed from a narrow QRS to a wide complex normal sinus rhythm. When she got to the recovery room, a full EKG demonstrated a left bundle -branch block with sinus rhythm. This was new compared to her EKG at her preoperative period. When I went to see the patient, she was awake, alert, and oriented. She denied any cardiac symptoms. She denied any chest pain, shortness of breath. No orthopnea or PND. The patient denied any palpitations and no lightheadedness. The patient's vital signs were stable. The patient had just undergone an echocardiogram in the recovery area, which demonstrated normal LV size and systolic function. Her right ventricle was minimally dilated with normal systolic function. She had no valvular issues. She had no pericardial issues. PAST MEDICAL HISTORY: Not significant. She denies any hypertension. She denies any long-term medical problems. PAST SURGICAL HISTORY: Carpal tunnel release, tubal ligation. OUTPATIENT MEDICATIONS: Tramadol as needed. ALLERGIES: No known drug allergies. FAMILY HISTORY: There is a family history of early stroke and diabetes. SOCIAL HISTORY: She continues to work. She denies tobacco or alcohol. She lives with her . REVIEW OF SYSTEMS: The patient denies any fevers or chills. She denies any changes in bowel or bladder habits. She denies any change in weight. Other 12 - point review is unremarkable. PHYSICAL EXAM: Height is 5 feet 10 inches, weight is 195 pounds, temperature is 96.8, heart rate is 60, blood pressure 129/78, respiratory rate is 14, oxygen saturation 98% on room air. Sclerae anicteric. Oropharynx is pink without erythema. Carotids are 2+ without bruits. JVD is normal. Thyroid is normal. Cardiac Exam: S1, S2 without any murmurs, rubs, or gallops. Lungs: Anteriorly are clear. I could not auscultate posteriorly as she could not sit up. Abdomen is soft, nontender, nondistended. There are normoactive bowel sounds. Extremities show minimal edema. The patient is bedbound as she is status post bilateral knee replacements. DIAGNOSTIC STUDIES/LAB DATA: Laboratory Studies: Today her chemistries are within normal limits. BUN 13, creatinine 0.6, troponin levels are normal at 0.01. IMPRESSION: A 58-year-old female with very little past medical history, who underwent bilateral knee replacement surgery today. During surgery, she had a new onset of a left bundle-branch block. Initial evaluation is unremarkable. Her echocardiogram is unremarkable. Her troponins are negative. PLAN/RECOMMENDATIONS: For now my recommendation is to observe the patient in telemetry overnight. I will get troponin levels in the morning and repeat EKG in the morning. At this point, I do not see any obvious cardiac issues other than the left bundle- branch itself, which can be monitored. This case was discussed with Dr. Yuko Dent. [id number]/[facility] #: [id number] PARKER
[2019-02-14] MEDS: oxyCODONE/Acetamin 5/325 MG* TAB PO PRN (19:21)
[2019-02-14] MEDS: ceFAZolin 1 GM in Dextrose (*) 1 GM/50 ML BAG IVPB SCH (19:33)
--- NOTE | 2019-02-14 21:40 | OP ---
DATE OF OPERATION: 02/14/19 - ROOM #343 DATE OF : 62 ATTENDING SURGEON: Laxmi Olson MD DIE MAINTENANCE TECHNICIAN: LUIS Melissa. Ms. Singleton did help throughout the procedure with preparation of the leg, wound retraction, manipulation of the knees, and wound closure. ANESTHESIOLOGIST: Dr. Ku. ANESTHESIA: Spinal. PRE-OP DIAGNOSIS: Severe endstage degenerative osteoarthritis of the bilateral knees. POST-OP DIAGNOSIS: Severe endstage degenerative osteoarthritis of the bilateral knees. OPERATIVE PROCEDURE: Bilateral total knee arthroplasty - right total knee arthroplasty and left total knee arthroplasty. COMPLICATIONS: None. ESTIMATED BLOOD LOSS: 300 cc right knee, 250 cc left knee. TOURNIQUET TIME: 54 minutes right knee, 57 minutes left knee. SPECIMEN: Bone and cartilage from the bilateral knees was sent to Pathology. HARDWARE USED: This is cemented [employer] total knee arthroplasty hardware. For the cement, Simplex with tobramycin 2 bags for each knee. For the right knee, a size 5 narrow right posterior-stabilized Legion Oxinium femoral component. For the tibia, a size 3 right tibial baseplate. For the insert, a 11-mm posterior-stabilized articular insert, size 3-4. For the patella, a 32 mm 7.5 thickness 3- peg all-poly patella. For the left knee, the femur was a left size 5 narrow posterior-stabilized Oxinium Legion femoral component. For the tibia, a size 3 left tibial baseplate. For the insert, a 9-mm posterior-stabilized articular insert, size 3 -4 and for the patella, a 32 mm 3-peg all-poly patella with 7.5 thickness. BRIEF HISTORY/INDICATION: Ms. Lee is a 58-year-old female with years of bilateral knee pain. She did have prior surgery on the right knee and developed posttraumatic degenerative changes. Radiograph showed endstage osteoarthritis in both knees with [id number] contact. She failed conservative treatment with antiinflammatories, pain medications, intraarticular injection, and physical therapy. Due to continued pain and decreased quality of life, she elected to undergo bilateral total knee arthroplasty. She accepted the additional risks involved in bilateral total knee arthroplasty. Informed consent was obtained from the patient. She understood the risks of surgery included, but were not limited to, bleeding, infection, damage to nearby structures, continued pain, need for further surgery , intraoperative fracture, nerve palsy, hardware failure or loosening, knee stiffness, loss of motion, stroke, heart attack, blood clot, , and anesthesia complications. She wished to proceed. INTRAOPERATIVE FINDINGS: Intraoperatively, the patient was noted to have severe endstage arthritis of the bilateral knees. There was complete loss of cartilage in the medial and patellofemoral compartments. The patient's right knee was noted to have some laxity of the MCL, although this ligament was intact. She had significant cystic changes in the tibial bone, intramedullary position due to prior surgery. DESCRIPTION OF PROCEDURE: Ms. Lee was identified in the preanesthesia unit. Her bilateral lower extremities were marked as the correct operative sites. Informed consent was signed and placed in the chart. The patient was taken to the operating room and placed under spinal anesthesia. A Ashley catheter was placed. Tourniquet was placed on the bilateral thighs. Bilateral lower extremities were prepped and draped in the usual sterile fashion. Preop time-out was made to correctly identify the patient, side, and site. Appropriate perioperative antibiotics were given within 1 hour of incision. The left knee was replaced first. The left tourniquet was inflated and total tourniquet time for this procedure was 57 minutes. A midline incision was made with a #10 blade and carried down to the extensor mechanism. A new #10 blade was used to make a standard medial parapatellar arthrotomy. The patella was subluxed laterally. Electrocautery was used to subperiosteally elevate the soft tissue off the superomedial tibia to the midsagittal plane. The knee was flexed up. The anterior horn of the lateral meniscus and ACL were sharply released. A drill was used to enter the distal femur. Intramedullary distal femoral cutting guide was pinned on the distal femur. Oscillating saw was used to make the distal femoral cut. Next, the external rotation guide was pinned on the distal femur. Distal femur was sized to a size 5. Size 5 multi-cutting jig was pinned on the distal femur. Oscillating saw was used to make the appropriate 4 chamfer cuts. PCL was completely released. The tibia was subluxed anteriorly. Extramedullary tibial cutting guide was pinned on the proximal tibia. Oscillating saw was used to make the proximal tibial cut perpendicular to the mechanical axis of the tibia. The bone was carefully removed. The knee was brought out into full extension. A spacer block had good fit with the knee in full extension. Medial and lateral ligaments were well balanced. Flexion and extension gaps were well balanced. The lamina truck bracer was placed both medially and laterally. Any remaining meniscus was carefully removed using electrocautery. Curved osteotome was used to remove any posterior osteophytes. Tibial tray and drop champ were placed and once again confirmed the tibial cut. Size 5 left narrow femoral trial was impacted onto the distal femur and had excellent fit and stability. The box for the posterior-stabilized implant was prepared using a box-cut osteotome and reamer. Size 3 tibial tray trial with a 9- mm insert trial was placed and the knee was taken through the range of motion. The knee had full extension to 130 degrees of flexion. There was satisfactory patellofemoral tracking. Patella was everted. A 7 mm of the patellar bone and cartilage was carefully removed using an oscillating saw. The patella was sized to a size 32. Three peg holes were drilled through the size 32 guide. A 32 trial patella with 7.5 thickness was placed on the patella. The knee was taken through the range of motion. There was satisfactory patellofemoral tracking. All trials were removed. Tibia was subluxed anteriorly and sized to a size 3. Proximal tibia was prepared using a size 3 keel punch. All bony cut surfaces were copiously irrigated with sterile saline and dried. Final implants were cemented into place starting with the tibia, followed by the femur, and last the patella. A 9-mm insert trial was placed while the knee was brought out into full extension. Tourniquet was turned down at 57 minutes. The knee was copiously irrigated with sterile saline. Electrocautery was used to obtain meticulous hemostasis. Once the cement had cured fully, the insert trial was removed. Any excess cement was removed from around the tibial tray and capsule was removed from around the hardware and capsule. Final insert chosen was a 9 mm posterior-stabilized articular insert, size 3-4. This was locked into position on the tibial tray. Stability of the insert was checked and rechecked and noted to be stable. The extensor mechanism was closed using interrupted #1 Vicryl. The rest of the incision was closed in a layered fashion using 0 and 2-0 Vicryl. Skin was closed using running 3-0 nylon suture. Xeroform, 4x4s, and Webril were placed over the incision. Sterile Half sheet was wrapped around the leg. Attention was next turned to replacing the right knee. Tourniquet was inflated and total tourniquet time for this procedure was 54 minutes. A midline incision was made with a #10 blade and carried down to the extensor mechanism. A new #10 blade was used to make a standard medial parapatellar arthrotomy. The patella was subluxed laterally. Electro-cautery was used to subperiosteally elevate the soft tissue off the superomedial tibia. The knee was flexed up. The anterior horn of the lateral meniscus and ACL were sharply released. A drill was used to enter the distal femur. Intramedullary distal femoral cutting guide was pinned on the distal femur. Oscillating saw was used to make the distal femoral cut. External rotation guide was pinned on the distal femur. The distal femur was sized to a size 5. Size 5 multi-cutting jig was pinned on the distal femur. Oscillating saw was used to make the appropriate 4 chamfer cuts. PCL was completely released. Extramedullary tibial cutting guide was pinned on the proximal tibia. Oscillating saw was used to make the proximal tibial cut perpendicular to the mechanical axis of the tibia. The bone was carefully removed. The knee was brought out into full extension. There was good medial and lateral ligamentous balancing. There was some laxity at the MCL when compared to the opposite side, likely from prior trauma and surgeries. Flexion and extension gaps were well balanced. The knee was flexed up. The lamina truck bracer was placed both medially and laterally. Any remaining meniscus was carefully removed using electrocautery. Curved osteotome was used to remove any posterior osteophytes. Tibial tray and drop champ were placed and once again confirmed a satisfactory tibial cut. The size 5 right narrow femoral trial was impacted onto the distal femur and it had excellent fit and stability. The box for the posterior-stabilized implant was prepared using a reamer and box-cut osteotome. Size 3 tibial tray trial with a 11-mm insert trial was placed. The knee was taken through the range of motion. The knee had full extension to 130 degrees of flexion with satisfactory patellofemoral tracking. Patella was everted. A 7 mm of the patellar bone and cartilage was carefully removed using an oscillating saw. The patella was sized to a size 32. Three peg holes were drilled through the size 32 guide. A 32 trial patella was placed and the knee was taken through the range of motion. There was satisfactory patellofemoral tracking. All trials were carefully removed. Tibia was subluxed anteriorly and sized to a size 3. Proximal tibia was prepared using a size 3 keel punch. All bony cut surfaces were sterile dried. Final implants were cemented into place starting with the tibia, followed by the femur, and last the patella. A 11-mm insert trial was placed while the knee was brought out into full extension. Tourniquet was turned down at 54 minutes. Electrocautery was used to achieve hemostasis. The knee was copiously irrigated with sterile saline. Once the cement had fully cured, the insert trial was removed. Any excess cement was removed from around the capsule and hardware. Final insert chosen was a 11-mm posterior-stabilized articular insert, size 3-4. This was locked into position on the tibial tray. The insert was checked and rechecked and noted to be stable. The extensor mechanism was closed using interrupted #1 Vicryl. The rest of the incision was closed in a layered fashion using 0 Vicryl. Skin was closed using running 3-0 nylon suture. Xeroform, 4x4s, and Webril were used to cover the incision. Karel wrap and cold pack were placed over this. The left knee had Karel wrap and cold pack placed. The patient's anesthesia was reversed without difficulty. She was taken to the PACU in stable condition. Intended weight bearing will be weightbearing as tolerated. Intended DVT prophylaxis will be Eliquis. [id number]/[facility] #: [id number] PARKER
[2019-02-14] MEDS: Magnesium Hydroxide LIQ* 30 ML UDC PO SCH (22:13)
[2019-02-14] MEDS: Acetaminophen TAB* 325 MG PO SCH (22:13)
[2019-02-14] MEDS: Docusate CAP* 100 MG PO SCH (22:13)
[2019-02-14] MEDS: oxyCODONE TAB* 5 MG TAB PO PRN (22:13)
[2019-02-15] MEDS: oxyCODONE/Acetamin 5/325 MG* TAB PO PRN ×6 (00:24→23:49)
[2019-02-15] MEDS: ceFAZolin 1 GM in Dextrose (*) 1 GM/50 ML BAG IVPB SCH ×2 (02:56→10:28)
[2019-02-15] MEDS: oxyCODONE TAB* 5 MG TAB PO PRN ×4 (04:04→16:29)
[2019-02-15] MEDS: Acetaminophen TAB* 325 MG PO SCH ×3 (06:00→22:05)
[2019-02-15 06:39] LABS: Hematocrit 33 % (33-41); Hemoglobin 11.3 g/dL (12.0-16.0); Mean Platelet Volume 8.6 fL (7.4-10.4); Platelet Count 148 10^3/uL (150-450)
[2019-02-15 06:48] LABS: INR 1.06 (0.77-1.02)
[2019-02-15 07:02] LABS: BUN/Creatinine Ratio 18.2 (8-20); Calcium 8.8 mg/dL (8.6-10.3); EGFR African American 93.5 (>60); EGFR Non-African American 77.3 (>60); Potassium 3.7 mmol/L (3.5-5.0)
--- NOTE | 2019-02-15 08:33 | PN ---
Subjective Date of Service: 02/15/19 Interval History: HD #2, POD #1 on 02/15 ID: 58 yo F without sig PMH other than blt knee pain and OA who presented 02/14/19 for elective blt TKR. Medicine is consulted for new LBBB in intraopertaive setting. Pt prior EKG from 02/03/19 showed NSR, has had neg trops, normal echo, and CP free Overnight no acute events, tele normal sinus with LBBB VSS This morning seen with son at bedside, denies CP, SOB or any other issues. Hand out given about LBBB, discussed implications for future (may need stress test as outpt) We discuss famiHx more for cardiac risk factors: Father-CVA Mother-DM Paternal Aunt: PE Objective Active Medications: Acetaminophen (Tylenol Tab*) 975 mg PO Q8HR [facility] Last Admin: 02/15/19 06:00 Dose: Not Given Apixaban (Eliquis*) 2.5 mg PO BID JANE Bisacodyl (Dulcolax Supp*) 10 mg OR DAILY PRN PRN Reason: constipation Cyclobenzaprine HCl (Flexeril Tab*) 10 mg PO TID PRN PRN Reason: SPASMS Diphenhydramine HCl (Benadryl Iv*) 12.5 mg IV Q6H PRN PRN Reason: PRURITIS Docusate Sodium (Colace Cap*) 100 mg PO BID [facility] Last Admin: 02/14/19 22:13 Dose: 100 mg Lactated Ringer's (Lactated Ringers 1000 Ml Bag*) 1,000 mls @ 100 mls/hr IV PER RATE [facility] Last Admin: 02/14/19 18:50 Dose: 100 mls/hr Cefazolin Sodium/Dextrose (Kefzol 1 Gm In Dextrose Duplex (*)) 1 gm in 50 mls @ 200 mls/hr IVPB Q8H [facility] Stop: 02/15/19 11:14 Last Admin: 02/15/19 02:56 Dose: 200 mls/hr Lactulose (Lactulose*) 30 ml PO Q6H PRN PRN Reason: constipation Magnesium Hydroxide (Milk Of Magnesia Liq*) 30 ml PO BID [facility] Last Admin: 02/14/19 22:13 Dose: 30 ml Magnesium Hydroxide (Milk Of Magnesia Liq*) 30 ml PO Q6H PRN PRN Reason: constipation Morphine Sulfate (Morphine 4 Mg/Ml Vial (1 Ml)) 2 mg IV Q2H PRN PRN Reason: PAIN Ondansetron HCl (Zofran Inj*) 4 mg IV Q6H PRN PRN Reason: nausea Last Admin: 02/14/19 16:16 Dose: 4 mg Ondansetron HCl (Zofran Tab*) 4 mg PO Q6H PRN PRN Reason: NAUSEA Oxycodone HCl (Roxycodone Tab*) 10 mg PO Q4H PRN PRN Reason: SEVERE PAIN Last Admin: 02/15/19 04:04 Dose: 10 mg Oxycodone/Acetaminophen (Percocet 5/325 Tab*) 1 tab PO Q4H PRN PRN Reason: PAIN Oxycodone/Acetaminophen (Percocet 5/325 Tab*) 2 tab PO Q4H PRN PRN Reason: PAIN Last Admin: 02/15/19 06:16 Dose: 2 tab Pharmacy Profile Note (Scopolamine Patch Remove*) 1 note PATCH OFF Q72H ONE Stop: 02/17/19 16:01 Polyethylene Glycol/Electrolytes (Miralax*) 17 gm PO DAILY PRN PRN Reason: Constipation Tramadol HCl (Ultram*) 50 mg PO Q6H PRN PRN Reason: PAIN Vital Signs - 8 hr 02/15/19 02/15/19 02/15/19 02:25 03:50 04:04 Temperature 98.6 F Pulse Rate 65 Respiratory 16 17 18 Rate Blood Pressure 105/50 (mmHg) O2 Sat by Pulse 97 Oximetry 02/15/19 02/15/19 02/15/19 06:16 07:30 08:28 Temperature 97.7 F Pulse Rate 68 Respiratory 18 18 18 Rate Blood Pressure 121/67 (mmHg) O2 Sat by Pulse 96 Oximetry Oxygen Devices in Use Now: None Appearance: Pleasant woman in NAD Ears/Nose/Mouth/Throat: NL Teeth, Lips, Gums Neck: NL Appearance and Movements; NL JVP Respiratory: Symmetrical Chest Expansion and Respiratory Effort, Clear to Auscultation Cardiovascular: NL Sounds; No Murmurs; No JVD, RRR Abdominal: NL Sounds; No Tenderness; No Distention Lymphatic: No Cervical Adenopathy Extremities: No Edema Skin: No Rash or Ulcers Neurological: Alert and Oriented x 3 Result Diagrams: 02/15/19 05:57 02/15/19 05:57 Assess/Plan/Problems-Billing Assessment: 58 yo F without sig PMH other than blt knee pain and OA who presented 02/14/19 for elective blt TKR. Medicine is consulted for new LBBB in intraopertaive setting, appears to be low risk. - Patient Problems (1) Left bundle branch block (LBBB) on electrocardiogram Current Visit: Yes Status: Acute Code(s): I44.7 - LEFT BUNDLE-BRANCH BLOCK, UNSPECIFIED SNOMED Code(s): 248061218 Comment: - New compared to prior, patient is CP free, trop neg and echo neg - Ddx structural or rate related, does NOT appear consistent with a intrapoperative ACS event, can be monitored as outpatient and can discuss pros and cons of outpatient stress with her PCP, we can place a cardiology consult for outpt follow up as well which is indicated for new LBBB - Given family hx and new LBBB would consider sending for hypercoaguable w/u, can be done as she transitions off, currently on DOAC thus results would be unhelpful (2) Status post bilateral knee replacements Current Visit: Yes Status: Acute Code(s): Z96.653 - PRESENCE OF ARTIFICIAL KNEE JOINT, BILATERAL SNOMED Code(s): 693901554 Comment: -Pain mgmt and DVT ppx per ortho Status and Disposition: Inpatient, thank you for this interesting consult, we will follow with you
[2019-02-15] MEDS: Docusate CAP* 100 MG PO SCH ×2 (08:35→19:40)
[2019-02-15] MEDS: Magnesium Hydroxide LIQ* 30 ML UDC PO SCH ×2 (08:35→19:42)
[2019-02-15] MEDS: Apixaban* 2.5 MG TAB PO SCH ×2 (08:36→19:41)
--- NOTE | 2019-02-15 11:36 | PN ---
<Purvi Mtz - Last Filed: 02/15/19 11:24> Subjective Date of Service: 02/15/19 - s/p bilateral total knee athroplasty with new LBBB Interval History: No events last night. I spoke with the patient's nurse Farhan who states last night while the patient was sleeping HR went into 40's patient not sympotmatic. Currently HR 70's. Patient offers no complaints except positional knee pain. She denies chest pain, dizziness, sob, lightheadedness or palpitations. Medications Active Medications: Acetaminophen (Tylenol Tab*) 975 mg PO Q8HR [facility] Last Admin: 02/15/19 06:00 Dose: Not Given Apixaban (Eliquis*) 2.5 mg PO BID [facility] Last Admin: 02/15/19 08:36 Dose: 2.5 mg Bisacodyl (Dulcolax Supp*) 10 mg HI DAILY PRN PRN Reason: constipation Cyclobenzaprine HCl (Flexeril Tab*) 10 mg PO TID PRN PRN Reason: SPASMS Diphenhydramine HCl (Benadryl Iv*) 12.5 mg IV Q6H PRN PRN Reason: PRURITIS Docusate Sodium (Colace Cap*) 100 mg PO BID [facility] Last Admin: 02/15/19 08:35 Dose: 100 mg Lactated Ringer's (Lactated Ringers 1000 Ml Bag*) 1,000 mls @ 100 mls/hr IV PER RATE [facility] Last Admin: 02/14/19 18:50 Dose: 100 mls/hr Lactulose (Lactulose*) 30 ml PO Q6H PRN PRN Reason: constipation Magnesium Hydroxide (Milk Of Magnesia Liq*) 30 ml PO BID [facility] Last Admin: 02/15/19 08:35 Dose: 30 ml Magnesium Hydroxide (Milk Of Magnesia Liq*) 30 ml PO Q6H PRN PRN Reason: constipation Morphine Sulfate (Morphine 4 Mg/Ml Vial (1 Ml)) 2 mg IV Q2H PRN PRN Reason: PAIN Ondansetron HCl (Zofran Inj*) 4 mg IV Q6H PRN PRN Reason: nausea Last Admin: 02/14/19 16:16 Dose: 4 mg Ondansetron HCl (Zofran Tab*) 4 mg PO Q6H PRN PRN Reason: NAUSEA Oxycodone HCl (Roxycodone Tab*) 10 mg PO Q4H PRN PRN Reason: SEVERE PAIN Last Admin: 02/15/19 08:36 Dose: 10 mg Oxycodone/Acetaminophen (Percocet 5/325 Tab*) 1 tab PO Q4H PRN PRN Reason: PAIN Oxycodone/Acetaminophen (Percocet 5/325 Tab*) 2 tab PO Q4H PRN PRN Reason: PAIN Last Admin: 02/15/19 10:27 Dose: 2 tab Pharmacy Profile Note (Scopolamine Patch Remove*) 1 note PATCH OFF Q72H ONE Stop: 02/17/19 16:01 Polyethylene Glycol/Electrolytes (Miralax*) 17 gm PO DAILY PRN PRN Reason: Constipation Tramadol HCl (Ultram*) 50 mg PO Q6H PRN PRN Reason: PAIN Objective Vital Signs: Temp Pulse Resp BP Pulse Ox 97.7 F 68 18 121/67 96 02/15/19 07:30 02/15/19 07:30 02/15/19 10:27 02/15/19 07:30 02/15/19 07:30 Oxygen Devices in Use Now: None Appearance: sitting in chair with legs elevated, NAD, A+O x3 Ears/Nose/Mouth/Throat: NL Teeth, Lips, Gums, Mucous Membranes Moist Neck: NL Appearance and Movements; NL JVP Respiratory: Symmetrical Chest Expansion and Respiratory Effort Cardiovascular: NL Sounds; No Murmurs; No JVD, No Edema Abdominal: NL Sounds; No Tenderness; No Distention Extremities: No Edema Skin: - - bilateral knees wrapped in britany wrap. Neurological: Alert and Oriented x 3 Lines/Tubes/Other Access: Clean, Dry and Intact Peripheral IV Laboratory Results: 02/15/19 05:57 02/15/19 05:57 INR (Anticoag Therapy) 1.06 (0.77-1.02) H 02/15/19 05:57 02/14/19 02/14/19 02/14/19 14:14 18:56 22:20 Troponin I 0.01 0.01 0.00 Laboratory Results - last 24 hr 02/14/19 02/14/19 02/14/19 14:14 18:56 22:20 Hgb Hct Plt Count MPV INR (Anticoag Therapy) Sodium 140 Potassium 4.3 Chloride 109 Carbon Dioxide 25 Anion Gap 6 BUN 13 Creatinine 0.62 Est GFR ( Amer) 120.1 Est GFR (Non-Af Amer) 99.2 BUN/Creatinine Ratio 21.0 H Glucose 140 H Calcium 8.4 L Troponin I 0.01 0.01 0.00 02/15/19 02/15/19 02/15/19 05:57 05:57 05:57 Hgb 11.3 L Hct 33 Plt Count 148 L MPV 8.6 INR (Anticoag Therapy) 1.06 H Sodium 138 Potassium 3.7 Chloride 103 Carbon Dioxide 29 Anion Gap 6 BUN 14 Creatinine 0.77 Est GFR ( Amer) 93.5 Est GFR (Non-Af Amer) 77.3 BUN/Creatinine Ratio 18.2 Glucose 155 H Calcium 8.8 Troponin I Diagnostic Imaging: Echo 02/14/2019: LVEF 60-65% with mild LVH, no regional wall motion abnormality. EKG Data: Today's ecg was reviewed; NSR rate 61 with LBBB Assessment/Plan #1 s/p bilateral total knee arthroplasty 02/14/[address] Olson. Ortho following #2 Intraoperative newly found LBBB; Patient not symptomatic. Troponin normal. echo did not reveal regional wall motion abnormalities and LVEF is preserved. LBBB has persisted since surgery on telemetry. HR currently in 70's nocturnally she was as low as 40 but not symptomatic. No further cardiac evaluation at this time. She can f/u with Dr. Claire outpatient. #3 DVT Prophylaxis; On eliwuis therapy. #4 Disposition; will likely sign off. Will update Dr. Randall on plan of care before doing so. Attending: John Randall <John Randall - Last Filed: 02/15/19 14:48> Medications Active Medications: Acetaminophen (Tylenol Tab*) 975 mg PO Q8HR [facility] Last Admin: 02/15/19 12:57 Dose: Not Given Apixaban (Eliquis*) 2.5 mg PO BID [facility] Last Admin: 02/15/19 08:36 Dose: 2.5 mg Bisacodyl (Dulcolax Supp*) 10 mg HI DAILY PRN PRN Reason: constipation Cyclobenzaprine HCl (Flexeril Tab*) 10 mg PO TID PRN PRN Reason: SPASMS Diphenhydramine HCl (Benadryl Iv*) 12.5 mg IV Q6H PRN PRN Reason: PRURITIS Docusate Sodium (Colace Cap*) 100 mg PO BID [facility] Last Admin: 02/15/19 08:35 Dose: 100 mg Lactated Ringer's (Lactated Ringers 1000 Ml Bag*) 1,000 mls @ 100 mls/hr IV PER RATE [facility] Last Admin: 02/14/19 18:50 Dose: 100 mls/hr Lactulose (Lactulose*) 30 ml PO Q6H PRN PRN Reason: constipation Magnesium Hydroxide (Milk Of Magnesia Liq*) 30 ml PO BID [facility] Last Admin: 02/15/19 08:35 Dose: 30 ml Magnesium Hydroxide (Milk Of Magnesia Liq*) 30 ml PO Q6H PRN PRN Reason: constipation Morphine Sulfate (Morphine 4 Mg/Ml Vial (1 Ml)) 2 mg IV Q2H PRN PRN Reason: PAIN Ondansetron HCl (Zofran Inj*) 4 mg IV Q6H PRN PRN Reason: nausea Last Admin: 02/14/19 16:16 Dose: 4 mg Ondansetron HCl (Zofran Tab*) 4 mg PO Q6H PRN PRN Reason: NAUSEA Oxycodone HCl (Roxycodone Tab*) 10 mg PO Q4H PRN PRN Reason: SEVERE PAIN Last Admin: 02/15/19 12:32 Dose: 10 mg Oxycodone/Acetaminophen (Percocet 5/325 Tab*) 1 tab PO Q4H PRN PRN Reason: PAIN Oxycodone/Acetaminophen (Percocet 5/325 Tab*) 2 tab PO Q4H PRN PRN Reason: PAIN Last Admin: 02/15/19 10:27 Dose: 2 tab Pharmacy Profile Note (Scopolamine Patch Remove*) 1 note PATCH OFF Q72H ONE Stop: 02/17/19 16:01 Polyethylene Glycol/Electrolytes (Miralax*) 17 gm PO DAILY PRN PRN Reason: Constipation Tramadol HCl (Ultram*) 50 mg PO Q6H PRN PRN Reason: PAIN Objective Vital Signs: Temp Pulse Resp BP Pulse Ox 98.7 F 76 20 112/48 90 02/15/19 12:32 02/15/19 12:32 02/15/19 14:42 02/15/19 12:32 02/15/19 12:32 Laboratory Results: 02/15/19 05:57 02/15/19 05:57 INR (Anticoag Therapy) 1.06 (0.77-1.02) H 02/15/19 05:57 02/14/19 02/14/19 02/14/19 14:14 18:56 22:20 Troponin I 0.01 0.01 0.00 Assessment/Plan Counseling and/or Coordination of Care Minutes: 35+ minutes Points of Discussion: Chart reviewed, patient examined, discussed with patient, at bedside and Bibi. As above, LBBB note intraop and persists. Neg troponins and nl EF on echo. Potential implications including degenerative conducting system disease, occult CAD, nonischemic cardiomyopathy, and potential for progression of conducting system disease including but limited to the need for a pacemaker if symptomatic bradycardia develops were discussed. I explained the need to report unexplained exercise limitation or syncope/dizziness in the future. Plan: Lexiscan to evaluate for ischemia. Outpatient followup with DR. Claire if above negative. Regular moderate exercise once recovered from knee surgery. discussed healthy diet, lifestyle, and weight control.
--- NOTE | 2019-02-15 15:43 | PN ---
Progress Note - Progress Note Date of Service: 02/15/19 SOAP: Subjective: []Patient seen at bedside. She feels well without CP, SOB, dizziness or nausea. Knee pain is rated 4/10 and tolerable. Objective: []General: Well appearing, NAD Bilateral LE: Dressings CDI, cryo cuffs in use, thighs soft, DF/PF intact, DP2+ , sensation intact to light touch distally. Calves supple and nontender without erythema, edema or palpable cords Assessment: []BL TK 02/14 Dr Oslon Plan: []WBAT PT/OT eliquis 2.5 mg po BID x 30 days Cardiology: 02/16 will have Lexiscan to evaluate for ischemia. Outpatient followup with DR. Claire if negative. Anticipate DC to PMRU tomorrow afternoon after cardio workup Vital Signs Temp 98.7 F 02/15/19 12:32 Pulse 76 02/15/19 12:32 Resp 18 02/15/19 14:43 BP 112/48 02/15/19 12:32 Pulse Ox 90 02/15/19 12:32 Intake & Output 02/14/19 02/15/19 02/15/19 18:59 06:59 18:59 Intake Total 3450 2880 840 Output Total 1500 1400 950 Balance 1950 1480 -110 Weight 195 lb 9.6 oz Intake: IV Fluids 3450 980 LR 3400 980 TRANSEXAMIC ACID 1G 50 IVPB 100 ABX - CEFAZOLIN 100 Oral 1800 840 Output: Urine 600 Ashley 1500 1400 350 Other: Estimated Void Large Laboratory Last Values Hgb 11.3 g/dL (12.0-16.0) L 02/15/19 05:57 Hct 33 % (33-41) 02/15/19 05:57 Plt Count 148 10^3/uL (150-450) L 02/15/19 05:57 MPV 8.6 fL (7.4-10.4) 02/15/19 05:57 INR (Anticoag Therapy) 1.06 (0.77-1.02) H 02/15/19 05:57 Sodium 138 mmol/L (135-145) 02/15/19 05:57 Potassium 3.7 mmol/L (3.5-5.0) 02/15/19 05:57 Chloride 103 mmol/L (101-111) 02/15/19 05:57 Carbon Dioxide 29 mmol/L (22-32) 02/15/19 05:57 Anion Gap 6 mmol/L (2-11) 02/15/19 05:57 BUN 14 mg/dL (6-24) 02/15/19 05:57 Creatinine 0.77 mg/dL (0.51-0.95) 02/15/19 05:57 Est GFR ( Amer) 93.5 (>60) 02/15/19 05:57 Est GFR (Non-Af Amer) 77.3 (>60) 02/15/19 05:57 BUN/Creatinine Ratio 18.2 (8-20) 02/15/19 05:57 Glucose 155 mg/dL (70-100) H 02/15/19 05:57 Calcium 8.8 mg/dL (8.6-10.3) 02/15/19 05:57 Troponin I 0.00 ng/mL (<0.04) 02/14/19 22:20
[2019-02-16] MEDS: oxyCODONE TAB* 5 MG TAB PO PRN ×2 (02:19→06:03)
--- NOTE | 2019-02-16 02:43 | PN ---
Progress Note - Progress Note Date of Service: 02/16/19 Note: Paged - Patient vomited and now febrile. Will obtain blood cultures, U/A, CBC, CXR and follow up. Remaining vitals stable.
[2019-02-16 03:37] LABS: Influenza A Molecular NEGATIVE (Negative); Influenza B Molecular NEGATIVE (Negative)
[2019-02-16] MEDS: oxyCODONE/Acetamin 5/325 MG* TAB PO PRN ×5 (03:51→22:18)
[2019-02-16 03:58] LABS: ABS Basophils 0 10^3/ul (0-0.2); ABS Eosinophils 0 10^3/ul (0-0.6); ABS Lymphocytes 1.1 10^3/ul (1.0-4.8); ABS Monocytes 0.8 10^3/ul (0-0.8); ABS Neutrophils 8.3 10^3/ul (1.5-7.7); ABS Nucleated RBC 0 10^3/ul; Eosinophil % 0 %; Hematocrit 28 % (33-41); Hemoglobin 9.7 g/dL (12.0-16.0); Lymphocyte % 10.8 %; Mean Corpuscular HGB Conc 35 g/dL (31-36); Mean Corpuscular Hemoglobin 31 pg (27-31); Mean Corpuscular Volume 90 fL (80-97); Mean Platelet Volume 7.9 fL (7.4-10.4); Nucleated Red Blood Cells % 0; Platelet Count 132 10^3/uL (150-450); Red Blood Count 3.08 10^6 /uL (3.70-4.87); Red Cell Distribution Width 13 % (10.5-15); White Blood Count 10.2 10^3/uL (3.5-10.8)
[2019-02-16 03:59] LABS: Urine Appearance Cloudy; Urine Bacteria Absent (Absent); Urine Bilirubin Negative (Negative); Urine Blood Negative (Negative); Urine Color Yellow; Urine Glucose Negative (Negative); Urine Ketones Negative (Negative); Urine Nitrite Negative (Negative); Urine Protein Negative (Negative); Urine Red Blood Cell Trace(0-2/hpf) (Absent); Urine Specific Gravity 1.024 (1.010-1.030); Urine Squamous Epithelial Cell Present (Absent); Urine Urobilinogen Negative (Negative); Urine White Blood Cell 3+(>20/hpf) (Absent); Urine White Blood Cell Casts Present (Absent)
[2019-02-16] MEDS: Acetaminophen TAB* 325 MG PO SCH ×2 (06:47→12:56)
[2019-02-16] MEDS: Docusate CAP* 100 MG PO SCH ×2 (08:15→20:22)
[2019-02-16] MEDS: Apixaban* 2.5 MG TAB PO SCH ×2 (08:15→20:21)
[2019-02-16] MEDS: Magnesium Hydroxide LIQ* 30 ML UDC PO SCH ×2 (08:15→20:22)
--- NOTE | 2019-02-16 09:13 | PN ---
Progress Note - Progress Note Date of Service: 02/16/19 SOAP: Subjective: []Pt seen and examined at bedside. She feels well now though she was having nausea and disorientation when she went down for a stress test, which was ultimately rescheduled. Denies any chest pain, shortness of breath, dizziness, nausea, confusion currently. Last night vomit and febrile, CXR, UA, FLU all negative. Objective: []General: Well appearing, NAD Bilateral knee dressings changed, incisions CDI without erythema or discharge, thigh is soft and nontender, DF/PF intact, DP2+, sensation intact to light touch distally Calves supple and nontender without erythema, edema or palpable cords Assessment: []BL TK 02/14 Dr Olson Plan: []WBAT PT/OT eliquis 2.5 mg po BID x 30 days Cardiology: Lexiscan rescheduled, will be done outpatient. Anticipate DC to PMRU today or tomorrow Vital Signs Temp 98.5 F 02/16/19 10:09 Pulse 81 02/16/19 11:11 Resp 16 02/16/19 11:12 BP 107/67 02/16/19 11:11 Pulse Ox 93 02/16/19 10:09 Intake & Output 02/15/19 02/16/19 02/16/19 18:59 06:59 18:59 Intake Total 1440 1080 Output Total 1550 300 500 Balance -110 780 -500 Intake: Oral 1440 1080 Output: Urine 1200 300 500 Ahsley 350 Other: Estimated Void Large Laboratory Last Values WBC 10.2 10^3/uL (3.5-10.8) 02/16/19 03:50 RBC 3.08 10^6 /uL (3.70-4.87) L 02/16/19 03:50 Hgb 9.7 g/dL (12.0-16.0) L 02/16/19 03:50 Hct 28 % (33-41) L 02/16/19 03:50 MCV 90 fL (80-97) 02/16/19 03:50 MCH 31 pg (27-31) 02/16/19 03:50 MCHC 35 g/dL (31-36) 02/16/19 03:50 RDW 13 % (10.5-15) 02/16/19 03:50 Plt Count 132 10^3/uL (150-450) L 02/16/19 03:50 MPV 7.9 fL (7.4-10.4) 02/16/19 03:50 Neut % (Auto) 81.3 % 02/16/19 03:50 Lymph % (Auto) 10.8 % 02/16/19 03:50 Gage % (Auto) 7.6 % 02/16/19 03:50 Eos % (Auto) 0 % 02/16/19 03:50 Baso % (Auto) 0.3 % 02/16/19 03:50 Absolute Neuts (auto) 8.3 10^3/ul (1.5-7.7) H 02/16/19 03:50 Absolute Lymphs (auto) 1.1 10^3/ul (1.0-4.8) 02/16/19 03:50 Absolute Monos (auto) 0.8 10^3/ul (0-0.8) 02/16/19 03:50 Absolute Eos (auto) 0 10^3/ul (0-0.6) 02/16/19 03:50 Absolute Basos (auto) 0 10^3/ul (0-0.2) 02/16/19 03:50 Absolute Nucleated RBC 0 10^3/ul 02/16/19 03:50 Nucleated RBC % 0 02/16/19 03:50 INR (Anticoag Therapy) 1.06 (0.77-1.02) H 02/15/19 05:57 Sodium 138 mmol/L (135-145) 02/15/19 05:57 Potassium 3.7 mmol/L (3.5-5.0) 02/15/19 05:57 Chloride 103 mmol/L (101-111) 02/15/19 05:57 Carbon Dioxide 29 mmol/L (22-32) 02/15/19 05:57 Anion Gap 6 mmol/L (2-11) 02/15/19 05:57 BUN 14 mg/dL (6-24) 02/15/19 05:57 Creatinine 0.77 mg/dL (0.51-0.95) 02/15/19 05:57 Est GFR ( Amer) 93.5 (>60) 02/15/19 05:57 Est GFR (Non-Af Amer) 77.3 (>60) 02/15/19 05:57 BUN/Creatinine Ratio 18.2 (8-20) 02/15/19 05:57 Glucose 155 mg/dL (70-100) H 02/15/19 05:57 Calcium 8.8 mg/dL (8.6-10.3) 02/15/19 05:57 Troponin I 0.00 ng/mL (<0.04) 02/14/19 22:20 Urine Color Yellow 02/16/19 03:26 Urine Appearance Cloudy 02/16/19 03:26 Urine pH 5.0 (5-9) 02/16/19 03:26 Ur Specific Jamul 1.024 (1.010-1.030) 02/16/19 03:26 Urine Protein Negative (Negative) 02/16/19 03:26 Urine Ketones Negative (Negative) 02/16/19 03:26 Urine Blood Negative (Negative) 02/16/19 03:26 Urine Nitrate Negative (Negative) 02/16/19 03:26 Urine Bilirubin Negative (Negative) 02/16/19 03:26 Urine Urobilinogen Negative (Negative) 02/16/19 03:26 Ur Leukocyte Esterase 2+ (Negative) A 02/16/19 03:26 Urine WBC (Auto) 3+(>20/hpf) (Absent) A 02/16/19 03:26 Urine RBC (Auto) Trace(0-2/hpf) (Absent) 02/16/19 03:26 Ur Squamous Epith Cells Present (Absent) A 02/16/19 03:26 Urine Bacteria Absent (Absent) 02/16/19 03:26 Hyaline Casts Present (Absent) A 02/16/19 03:26 WBC Casts Present (Absent) A 02/16/19 03:26 Urine Glucose Negative (Negative) 02/16/19 03:26 Influenza A (Rapid) Negative (Negative) 02/16/19 03:24 Influenza B (Rapid) Negative (Negative) 02/16/19 03:24
[2019-02-16] MEDS ORDERED: Regadenoson* 0.4 MG/5 ML SYRINGE ONE (10:33)
--- NOTE | 2019-02-16 16:28 | PN ---
Subjective Date of Service: 02/16/19 Interval History: Pt is feeling well today. She states she thinks the pain medication made her feel dizzy and nauseous. She states her pain is fairly well controlled currently. No SOB or other concerning symptoms. Objective Active Medications: Acetaminophen (Tylenol Tab*) 975 mg PO Q8HR [facility] Last Admin: 02/16/19 12:56 Dose: Not Given Apixaban (Eliquis*) 2.5 mg PO BID [facility] Last Admin: 02/16/19 08:15 Dose: 2.5 mg Bisacodyl (Dulcolax Supp*) 10 mg AR DAILY PRN PRN Reason: constipation Cyclobenzaprine HCl (Flexeril Tab*) 10 mg PO TID PRN PRN Reason: SPASMS Last Admin: 02/15/19 18:34 Dose: 10 mg Diphenhydramine HCl (Benadryl Iv*) 12.5 mg IV Q6H PRN PRN Reason: PRURITIS Docusate Sodium (Colace Cap*) 100 mg PO BID [facility] Last Admin: 02/16/19 08:15 Dose: 100 mg Lactated Ringer's (Lactated Ringers 1000 Ml Bag*) 1,000 mls @ 100 mls/hr IV PER RATE [facility] Last Admin: 02/14/19 18:50 Dose: 100 mls/hr Lactulose (Lactulose*) 30 ml PO Q6H PRN PRN Reason: constipation Last Admin: 02/16/19 12:54 Dose: 30 ml Magnesium Hydroxide (Milk Of Magnesia Liq*) 30 ml PO BID [facility] Last Admin: 02/16/19 08:15 Dose: 30 ml Magnesium Hydroxide (Milk Of Magnesia Liq*) 30 ml PO Q6H PRN PRN Reason: constipation Morphine Sulfate (Morphine 4 Mg/Ml Vial (1 Ml)) 2 mg IV Q2H PRN PRN Reason: PAIN Ondansetron HCl (Zofran Inj*) 4 mg IV Q6H PRN PRN Reason: nausea Last Admin: 02/14/19 16:16 Dose: 4 mg Ondansetron HCl (Zofran Tab*) 4 mg PO Q6H PRN PRN Reason: NAUSEA Last Admin: 02/15/19 21:52 Dose: 4 mg Oxycodone HCl (Roxycodone Tab*) 10 mg PO Q4H PRN PRN Reason: SEVERE PAIN Last Admin: 02/16/19 06:03 Dose: 10 mg Oxycodone/Acetaminophen (Percocet 5/325 Tab*) 1 tab PO Q4H PRN PRN Reason: PAIN Oxycodone/Acetaminophen (Percocet 5/325 Tab*) 2 tab PO Q4H PRN PRN Reason: PAIN Last Admin: 02/16/19 12:47 Dose: 2 tab Pharmacy Profile Note (Scopolamine Patch Remove*) 1 note PATCH OFF Q72H ONE Stop: 02/17/19 16:01 Polyethylene Glycol/Electrolytes (Miralax*) 17 gm PO DAILY PRN PRN Reason: Constipation Tramadol HCl (Ultram*) 50 mg PO Q6H PRN PRN Reason: PAIN Last Admin: 02/15/19 21:15 Dose: 50 mg Vital Signs - 8 hr 02/16/19 02/16/19 02/16/19 10:09 11:11 11:12 Temperature 98.5 F Pulse Rate 75 81 Respiratory 16 16 Rate Blood Pressure 96/44 107/67 (mmHg) O2 Sat by Pulse 93 Oximetry 02/16/19 02/16/19 02/16/19 11:41 12:47 15:42 Temperature 99.2 F 100.2 F Pulse Rate 73 85 Respiratory 16 16 18 Rate Blood Pressure 113/58 112/59 (mmHg) O2 Sat by Pulse 100 99 Oximetry Oxygen Devices in Use Now: None Appearance: Middle aged female sitting up in bed, NAD Eyes: No Scleral Icterus Ears/Nose/Mouth/Throat: Mucous Membranes Moist Respiratory: Symmetrical Chest Expansion and Respiratory Effort, Clear to Auscultation Cardiovascular: NL Sounds; No Murmurs; No JVD, RRR, No Edema Abdominal: NL Sounds; No Tenderness; No Distention Extremities: No Clubbing, Cyanosis, - - knee incisions not inspected by myself Skin: No Nodules or Sclerosis Neurological: Alert and Oriented x 3 Result Diagrams: 02/16/19 03:50 02/15/19 05:57 Microbiology and Other Data: Microbiology 02/16/19 02:56 Influenza Types A,B Antigen - Final Nasal Specimen received for Influenza A/B Molecular testing Assess/Plan/Problems-Billing 58 yo F without significant PMHx other than bilateral knee pain and OA who presented 02/14/19 for elective bilateral TKR. Medicine is consulted for new LBBB in intraopertaive setting, appears to be low risk. - Patient Problems (1) Left bundle branch block (LBBB) on electrocardiogram Current Visit: Yes Status: Acute Code(s): I44.7 - LEFT BUNDLE-BRANCH BLOCK, UNSPECIFIED SNOMED Code(s): 035050549 Comment: Pt remains chest pain free. Her stress test was cancelled this am as she was slightly hypotensive and feeling dizzy. She does not need the stress test while hospitalized. She can follow up with Dr. Claire as an outpatient and have this then. (2) Fever Current Visit: Yes Status: Acute Code(s): R50.9 - FEVER, UNSPECIFIED SNOMED Code(s): 301714194 Comment: Last night the patient developed a fever. So far all investigations negative for source of infection. Will continue to monitor and await final culture results. Continue incentive spirometer. (3) Status post bilateral knee replacements Current Visit: Yes Status: Acute Code(s): Z96.653 - PRESENCE OF ARTIFICIAL KNEE JOINT, BILATERAL SNOMED Code(s): 763240941 Comment: Management per orthopedics. Likely d/c to PMRU tomorrow. Status and Disposition: .
[2019-02-17] MEDS: Acetaminophen TAB* 325 MG PO SCH ×2 (02:28→06:17)
[2019-02-17] MEDS: oxyCODONE/Acetamin 5/325 MG* TAB PO PRN ×3 (02:52→12:04)
[2019-02-17 06:03] LABS: Hematocrit 28 % (33-41); Hemoglobin 9.2 g/dL (12.0-16.0)
[2019-02-17 06:35] LABS: BUN/Creatinine Ratio 14.5 (8-20); Calcium 8.3 mg/dL (8.6-10.3); EGFR African American 94.9 (>60); EGFR Non-African American 78.4 (>60); Potassium 3.5 mmol/L (3.5-5.0)
[2019-02-17] MEDS: Docusate CAP* 100 MG PO SCH (07:55)
[2019-02-17] MEDS: Apixaban* 2.5 MG TAB PO SCH (07:55)
--- NOTE | 2019-02-17 07:58 | PN ---
Subjective Date of Service: 02/17/19 Interval History: Pt is feeling well today. She states in general her pain has been under control. She had a relatively restful evening. No nausea. She had a fever again last night but still denies cough, sputum production, dysuria, diarrhea. Objective Active Medications: Acetaminophen (Tylenol Tab*) 975 mg PO Q8HR [facility] Last Admin: 02/17/19 06:17 Dose: Not Given Apixaban (Eliquis*) 2.5 mg PO BID [facility] Last Admin: 02/16/19 20:21 Dose: 2.5 mg Bisacodyl (Dulcolax Supp*) 10 mg [place] DAILY PRN PRN Reason: constipation Cyclobenzaprine HCl (Flexeril Tab*) 10 mg PO TID PRN PRN Reason: SPASMS Last Admin: 02/15/19 18:34 Dose: 10 mg Diphenhydramine HCl (Benadryl Iv*) 12.5 mg IV Q6H PRN PRN Reason: PRURITIS Docusate Sodium (Colace Cap*) 100 mg PO BID [facility] Last Admin: 02/16/19 20:22 Dose: 100 mg Lactated Ringer's (Lactated Ringers 1000 Ml Bag*) 1,000 mls @ 100 mls/hr IV PER RATE [facility] Last Admin: 02/14/19 18:50 Dose: 100 mls/hr Lactulose (Lactulose*) 30 ml PO Q6H PRN PRN Reason: constipation Last Admin: 02/16/19 12:54 Dose: 30 ml Magnesium Hydroxide (Milk Of Magnesia Liq*) 30 ml PO BID [facility] Last Admin: 02/16/19 20:22 Dose: 30 ml Magnesium Hydroxide (Milk Of Magnesia Liq*) 30 ml PO Q6H PRN PRN Reason: constipation Morphine Sulfate (Morphine 4 Mg/Ml Vial (1 Ml)) 2 mg IV Q2H PRN PRN Reason: PAIN Ondansetron HCl (Zofran Inj*) 4 mg IV Q6H PRN PRN Reason: nausea Last Admin: 02/14/19 16:16 Dose: 4 mg Ondansetron HCl (Zofran Tab*) 4 mg PO Q6H PRN PRN Reason: NAUSEA Last Admin: 02/15/19 21:52 Dose: 4 mg Oxycodone HCl (Roxycodone Tab*) 10 mg PO Q4H PRN PRN Reason: SEVERE PAIN Last Admin: 02/16/19 06:03 Dose: 10 mg Oxycodone/Acetaminophen (Percocet 5/325 Tab*) 1 tab PO Q4H PRN PRN Reason: PAIN Oxycodone/Acetaminophen (Percocet 5/325 Tab*) 2 tab PO Q4H PRN PRN Reason: PAIN Last Admin: 02/17/19 02:52 Dose: 2 tab Pharmacy Profile Note (Scopolamine Patch Remove*) 1 note PATCH OFF Q72H ONE Stop: 02/17/19 16:01 Polyethylene Glycol/Electrolytes (Miralax*) 17 gm PO DAILY PRN PRN Reason: Constipation Tramadol HCl (Ultram*) 50 mg PO Q6H PRN PRN Reason: PAIN Last Admin: 02/15/19 21:15 Dose: 50 mg Vital Signs - 8 hr 02/17/19 02/17/19 02/17/19 00:15 00:26 02:50 Temperature 101.8 F 101.2 F Pulse Rate 104 93 Respiratory 16 17 16 Rate Blood Pressure 141/65 117/62 (mmHg) O2 Sat by Pulse 95 95 Oximetry 02/17/19 02/17/19 02/17/19 02:52 03:07 04:24 Temperature 100.3 F 99.7 F Pulse Rate 85 84 Respiratory 16 17 Rate Blood Pressure 104/51 (mmHg) O2 Sat by Pulse 97 99 Oximetry 02/17/19 02/17/19 05:24 07:29 Temperature 99.4 F Pulse Rate 85 Respiratory 16 18 Rate Blood Pressure 118/66 (mmHg) O2 Sat by Pulse 92 Oximetry Oxygen Devices in Use Now: None Appearance: Middle aged female sitting up in bed, NAD Eyes: No Scleral Icterus Ears/Nose/Mouth/Throat: Mucous Membranes Moist Respiratory: Symmetrical Chest Expansion and Respiratory Effort, Clear to Auscultation - anteriorly Cardiovascular: NL Sounds; No Murmurs; No JVD, RRR, - - trace LE edema Abdominal: NL Sounds; No Tenderness; No Distention Extremities: No Clubbing, Cyanosis, - - knee incisions not inspected today Skin: No Nodules or Sclerosis Neurological: Alert and Oriented x 3 Result Diagrams: 02/17/19 05:24 02/17/19 05:24 Microbiology and Other Data: Microbiology 02/16/19 02:56 Influenza Types A,B Antigen - Final Nasal Specimen received for Influenza A/B Molecular testing Assess/Plan/Problems-Billing 58 yo F without significant PMHx other than bilateral knee pain and OA who presented 02/14/19 for elective bilateral TKR. Medicine is consulted for new LBBB in intraopertaive setting, appears to be low risk. - Patient Problems (1) Left bundle branch block (LBBB) on electrocardiogram Current Visit: Yes Status: Acute Code(s): I44.7 - LEFT BUNDLE-BRANCH BLOCK, UNSPECIFIED SNOMED Code(s): 006527971 Comment: Pt remains chest pain free. Plan for outpatient stress test in the future after she recovers from her B/L TKR. (2) Fever Current Visit: Yes Status: Acute Code(s): R50.9 - FEVER, UNSPECIFIED SNOMED Code(s): 361042678 Comment: Pt had a fever again last evening. Still no source of infection. Holding off on Abx despite abnormal UA but the UA appears to be more consistent with dehydration than infection (additionally she has no dysuria). Continue incentive spirometer. Monitor for clear signs of infection. (3) Status post bilateral knee replacements Current Visit: Yes Status: Acute Code(s): Z96.653 - PRESENCE OF ARTIFICIAL KNEE JOINT, BILATERAL SNOMED Code(s): 117174248 Comment: Management of pain and DVT prophylaxis per orthopedics. Status and Disposition: .
[2019-02-17] MEDS: Magnesium Hydroxide LIQ* 30 ML UDC PO SCH (09:39)
--- NOTE | 2019-02-17 10:28 | PN ---
Progress Note - Progress Note Date of Service: 02/17/19 SOAP: Subjective: []Patient seen walking in hallway with PT and later in her room. She is progressing well. Nausea has resolved. Denies SOB, CP, palpitations or dizziness. She feels ready to go to rehab-[facility] Objective: [] Vital Signs Temp 99.4 F 02/17/19 07:29 Pulse 85 02/17/19 07:29 Resp 16 02/17/19 07:55 BP 118/66 02/17/19 07:29 Pulse Ox 92 02/17/19 07:29 Intake & Output 02/16/19 02/17/19 02/17/19 18:59 06:59 18:59 Intake Total 840 1060 100 Output Total 1300 700 Balance -460 360 100 Intake: Oral 840 1060 100 Output: Urine 1300 700 Laboratory Results - last 24 hr 02/17/19 02/17/19 05:24 05:24 Hgb 9.2 L Hct 28 L Sodium 136 Potassium 3.5 Chloride 100 L Carbon Dioxide 32 Anion Gap 4 BUN 11 Creatinine 0.76 Est GFR ( Amer) 94.9 Est GFR (Non-Af Amer) 78.4 BUN/Creatinine Ratio 14.5 Glucose 131 H Calcium 8.3 L Bilateral knee incisions benign calves NT sand soft BL Active dorsiflexion BL ankles sensation and circulation remain intact distally Assessment: []s/p BTK arthroplasty POD #3 Plan: []Discharge to [facility] today Continue Eliquis 2.5 BID-1 month post op F/U Dr. Olson as scheduled 10-14 days
[2019-02-17 11:04] VITALS: BP 121/54
--- NOTE | 2019-02-17 12:06 | DS ---
AMENDED REPORT NOW INCLUDES DESIGNATED COSIGNER DISCHARGE SUMMARY: DATE OF ADMISSION: 02/14/19 DATE OF DISCHARGE: 02/17/19 ATTENDING PHYSICIAN: Dr. Laxmi Olson.* (DICTATED BY LUIS ENRIQUEZ) ADMISSION DIAGNOSIS: Bilateral severe end-stage degenerative osteoarthritis, knees. DISCHARGE DIAGNOSIS: Severe end-stage degenerative osteoarthritis, bilateral knees. SURGERY PERFORMED: Bilateral total knee arthroplasty. HOSPITAL COURSE: The patient is a 58-year-old female with years of bilateral knee pain. She did have prior surgery on the right knee and unfortunately developed posttraumatic degenerative arthritis. Her plain films revealed end- stage osteoarthritis in both knees with bon-on-bone articular contact. She failed conservative management with anti-inflammatories, pain medications, intraarticular cortisone injections, and physical therapy. Due to continued pain and decreased quality of life, the patient elected to proceed with bilateral total knee arthroplasty. She was taken to the operating room under the care of Dr. Laxmi Olson on the date of 02/14/19. It was noted intraoperatively that she had a left bundle-branch block noted on her monitoring intraoperatively. She failed to have any symptoms of shortness of breath, chest pain, palpitations. She was seen by the cardiology service and she was also followed by the medical service while in-house. She had negative troponins and normal ejection fraction on her echocardiogram. She did have some nausea and vomiting postoperatively, but this did resolve. Additional workup with chest x-ray, urinalysis have failed to show any gross abnormalities. She has run a temperature at night of 101.2. Again, this appears to be from atelectasis and incentive spirometry has been helpful. It was felt by the medical and cardiology service that she was stable for discharge to [facility] for additional rehabilitation. She will have a Lexiscan for the left bundle- branch block as an outpatient once recovered from her bilateral total knee arthroplasties. CONDITION ON DISCHARGE: Temperature 99.7, pulse 84, respiratory rate 17, O2 saturation 99% on room air, blood pressure 104/51. Both knees are doing well. Incisions are healing without evidence of drainage, erythema, signs of infection. Her calves are nontender and soft. She has active dorsiflexion of both ankles. PLAN: Discharged to [facility] for additional rehabilitation. She may continue to bear weight as tolerated, bilateral lower extremities. She will continue with Eliquis 2.5 mg p.o. b.i.d. for DVT prophylaxis. Dr. Andrade is recommending monitoring for continued febrile state at night. As above, she will follow up for a Lonniean in Cardiology as an outpatient. All questions were answered. LUIS ENRIQUEZ [id number]/[facility] #: [id number] PARKER
[2019-02-17] MEDS ORDERED: Scopolamine PATCH Remove* 1 NOTE MISC PATCH OFF ONE (16:00)
== END 2019-02-17 12:20 | DRG 302 ==
LOC: AA 06:37 → SSU 18:18
PROVIDERS: ADMIT Orthopaedic Surgery Adult Reconstructive Orthopaedic Surgery; ATTEND Orthopaedic Surgery Adult Reconstructive Orthopaedic Surgery
PROC: 0SRD0J9 Replacement of Left Knee Joint with Synthetic Substitute, Cemented, Open Approach (ICD-10-PCS; 2019-02-14)
PROC: 0SRC069 Replacement of Right Knee Joint with Oxidized Zirconium on Polyethylene Synthetic Substitute, Cemented, Open Approach (ICD-10-PCS; principal; 2019-02-14 08:00)
DX: M17.31 Unilateral post-traumatic osteoarthritis, right knee (principal); M25.462 Effusion, left knee; R94.31 Abnormal electrocardiogram [ECG] [EKG]; M25.461 Effusion, right knee; M25.762 Osteophyte, left knee; M25.761 Osteophyte, right knee; M23.8X1 Other internal derangements of right knee; M17.12 Unilateral primary osteoarthritis, left knee; Z98.51 Tubal ligation status; Z83.3 Family history of diabetes mellitus; Z82.3 Family history of stroke; Z72.89 Other problems related to lifestyle; Z84.1 Family history of disorders of kidney and ureter; I45.10 Unspecified right bundle-branch block; R00.1 Bradycardia, unspecified; R11.0 Nausea; R50.9 Fever, unspecified
CPT/HCPCS: 36415; 71045; 78451; 80048; 81003; 81015; 84484; 85014; 85018; 85025; 85049; 85610; 87040; 87086; 93005; 93306; A9270-GY; A9502; C1776; J0360; J0690; J0780; J1885; J2250; J2270; J2405; J2704; J2785; J3010; J8540

== ENCOUNTER 2019-02-17 10:23 | Inpatient (IN) | payer BC ==
[2019-02-17] MEDS ORDERED: Senna TAB PO PRN (13:05)
[2019-02-17] MEDS ORDERED: Acetaminophen TAB* 325 MG PO PRN (13:05)
[2019-02-17] MEDS ORDERED: Magnesium Hydroxide LIQ* 30 ML UDC PO PRN (13:05)
[2019-02-17] MEDS ORDERED: oxyCODONE/Acetamin 5/325 MG* TAB PO PRN (13:11)
[2019-02-17] MEDS: oxyCODONE/Acetamin 5/325 MG* TAB PO PRN ×2 (17:01→21:04)
[2019-02-17] MEDS: Apixaban* 2.5 MG TAB PO SCH (19:53)
[2019-02-17] MEDS: Docusate CAP* 100 MG PO SCH (19:53)
--- NOTE | 2019-02-17 20:37 | HP ---
ADMISSION HISTORY AND PHYSICAL: DATE OF ADMISSION: 02/17/19 REASON FOR ADMISSION: Bilateral total knee replacement. HISTORY OF PRESENT ILLNESS: Nicole Lee is a 58-year-old white female. She has a medical history that is relatively benign. She did have an ACL tear and had a right knee ACL repair in 2006. She had to have a screw removed from her right knee in 2018. She had significant pain in both knees. She is on her feet all day as a teacher. She had seen Dr. Olson. She had x- rays revealing end-stage osteoarthritis of both knees. She had tried and failed conservative treatment. It was felt that she would benefit from bilateral total knee replacement. She was admitted to [facility] on 02/14/19, and underwent a bilateral total knee replacement. Postoperatively, her course was notable for some hypotension and some nausea. She also developed a fever. She had a new left bundle-branch block found intraoperatively. It was felt that she would need a stress test after rehab. As far as her fever, her blood work was benign. She had an urinalysis that will need to be followed up on. The patient was put on Eliquis for DVT prophylaxis. She is failed to have physical therapy and occupational therapy needs. She is now being admitted for inpatient rehab so that she might return to independent living. PAST MEDICAL HISTORY: Significant for the aforementioned left bundle-branch block. MEDICATIONS: Current medications include: 1. Eliquis for DVT prophylaxis. 2. She is on Percocet for pain control. 3. Bowel medications. ALLERGIES: No known drug allergies. SOCIAL HISTORY: She is a nonsmoker. She has 1 and 2 alcoholic beverages a week. She lives in a 3-story house with her . There are 5 steps to enter the house. She works as a teacher in the [employer]. REVIEW OF SYSTEMS: The patient denies any shortness of breath or chest pain. PHYSICAL EXAMINATION VITAL SIGNS: On physical exam, the patient's temperature is 98.7, blood pressure is 125/60, pulse 86, respirations 16. HEENT: Her extraocular movements are intact. Tongue is midline. NECK: Supple. LUNGS: Sound clear to auscultation bilaterally. HEART: Heart sounds are regular. S1, S2 audible. ABDOMEN: Soft and nontender. EXTREMITIES: Her knees have wounds, which are clean and dry. Peripheral pulses were intact. NEUROLOGIC: She is awake, alert, and oriented. Her muscle strength in her upper extremities appears to be 5/5. Left lower extremity appears to be about 3 -4/5 secondary to pain. FUNCTIONAL EXAM: She transfers with contact guard to min assist. ASSESSMENT: Bilateral total knee replacement. PLAN/RECOMMENDATIONS: Integrate her into a comprehensive and therapeutic rehab program with the following goals: 1. Physical Therapy will see with the patient. They are going to work on functional transfer training and ambulation training with a walker. 2. Occupational Therapy will see the patient, work on her activities of daily living including toileting and toilet transfers. 3. Eliquis for DVT prophylaxis. 4. Adequate analgesia. 5. Her bowels will be regulated. 6. building services supervisor will be closely involved to make sure that any services and equipment the patient requires are in place prior to discharge. 7. Family training as appropriate. 8. Home with appropriate services. ESTIMATED LENGTH OF STAY: 7 to 10 days. [id number]/[facility] #: [id number] MTDD
[2019-02-18] MEDS: oxyCODONE/Acetamin 5/325 MG* TAB PO PRN ×6 (01:25→23:50)
[2019-02-18] MEDS: Apixaban* 2.5 MG TAB PO SCH ×2 (09:06→20:58)
[2019-02-18] MEDS: Docusate CAP* 100 MG PO SCH ×2 (09:06→20:58)
--- NOTE | 2019-02-18 17:01 | PN ---
Progress Note Date of Service: 02/18/19 Note: ELIZABETH MENDOZA was visited. Therapy notes read and reviewed. She has some difficulty with constipation but her pain is well managed. Therapy is going okay Current Medications: Active Medications Generic Name Dose Route Start Last Admin Trade Name Freq PRN Reason Stop Dose Admin Acetaminophen 650 mg 02/17/19 13:05 Tylenol Tab* PO Q6H PRN FEVER/PAIN Apixaban 2.5 mg 02/17/19 21:00 02/18/19 09:06 Eliquis* PO 2.5 mg BID JANE Administration Docusate Sodium 100 mg 02/17/19 21:00 02/18/19 09:06 Colace Cap* PO 100 mg BID JANE Administration Magnesium Hydroxide 30 ml 02/17/19 13:05 Milk Of Magnben Liq* PO Q6H PRN CONSTIPATION Oxycodone/Acetaminophen 1 tab 02/17/19 13:11 Percocet 5/325 Tab* PO Q4H PRN PAIN - MODERATE TO SEVERE Oxycodone/Acetaminophen 2 tab 02/17/19 13:14 02/18/19 15:15 Percocet 5/325 Tab* PO 2 tab Q4H PRN Administration PAIN - SEVERE Senna 2 tab 02/17/19 13:05 Senokot Tab* PO BEDTIME PRN CONSTIPATION Vital Signs: Vital Signs Temp Pulse Resp BP Pulse Ox 99.6 F 96 20 126/65 96 02/18/19 16:39 02/18/19 16:39 02/18/19 16:39 02/18/19 16:39 02/18/19 16:39 Exam: GENERAL: No distress LUNGS: Clear bilaterally HEART: reg rhythm ABDOMEN: Soft +BS EXTREMITIES: Wounds appear clean. Peripheral pulses intact NEUROLOGIC: A&O. Sensation intact. Able to move legs but painful; arms 5/5 bilaterally Assessment/Plan: 1. Bilateral TKA: WBAT. PT/OT 2. DVT prophylaxis: Eliquis 3. Constipation: MOM/Colace/Senna. Will add Dulc Supp 4. Advanced Directives: Full code 02/18/19 17:00
[2019-02-18] MEDS: Senna TAB PO SCH (20:58)
[2019-02-19] MEDS: oxyCODONE/Acetamin 5/325 MG* TAB PO PRN ×4 (06:54→23:40)
[2019-02-19] MEDS: Docusate CAP* 100 MG PO SCH ×2 (09:09→20:57)
[2019-02-19] MEDS: Apixaban* 2.5 MG TAB PO SCH ×2 (09:09→20:57)
--- NOTE | 2019-02-19 14:58 | PN ---
Progress Note Date of Service: 02/19/19 Note: ELIZABETH MENDOZA was visited. Therapy notes read and reviewed. I examined her knees. Her left thigh has an area of ecchymosis on the posterior side. She is otherwise ok. Current Medications: Active Medications Generic Name Dose Route Start Last Admin Trade Name Freq PRN Reason Stop Dose Admin Acetaminophen 650 mg 02/17/19 13:05 Tylenol Tab* PO Q6H PRN FEVER/PAIN Apixaban 2.5 mg 02/17/19 21:00 02/19/19 09:09 Eliquis* PO 2.5 mg BID JNAE Administration Bisacodyl 10 mg 02/18/19 17:01 Dulcolax Supp* [place] DAILY PRN CONSTIPATION Docusate Sodium 100 mg 02/17/19 21:00 02/19/19 09:09 Colace Cap* PO 100 mg BID JANE Administration Magnesium Hydroxide 30 ml 02/17/19 13:05 Milk Of Magnesia Liq* PO Q6H PRN CONSTIPATION Oxycodone/Acetaminophen 1 tab 02/17/19 13:11 Percocet 5/325 Tab* PO Q4H PRN PAIN - MODERATE TO SEVERE Oxycodone/Acetaminophen 2 tab 02/17/19 13:14 02/19/19 12:14 Percocet 5/325 Tab* PO 2 tab Q4H PRN Administration PAIN - SEVERE Senna 2 tab 02/18/19 21:00 02/18/19 20:58 Senokot Tab* PO 2 tab BEDTIME JANE Administration Vital Signs: Vital Signs Temp Pulse Resp BP Pulse Ox 98.9 F 92 18 136/76 96 02/19/19 05:36 02/19/19 05:36 02/19/19 12:14 02/19/19 05:36 02/19/19 08:00 Exam: GENERAL: No distress LUNGS: Clear bilaterally HEART: reg rhythm ABDOMEN: Soft +BS EXTREMITIES: Wounds appear clean. Ecchymosis left thigh and right knee. Peripheral pulses intact NEUROLOGIC: A&O. Sensation intact. Able to move legs but painful; arms 5/5 bilaterally Assessment/Plan: 1. Bilateral TKA: WBAT. PT/OT 2. DVT prophylaxis: Eliquis 3. Constipation: MOM/Colace/Senna. Will add Dulc Supp 4. Advanced Directives: Full code 02/19/19 14:59
[2019-02-19] MEDS: Senna TAB PO SCH (20:56)
[2019-02-20] MEDS: oxyCODONE/Acetamin 5/325 MG* TAB PO PRN ×4 (05:49→19:59)
[2019-02-20 06:03] LABS: ABS Basophils 0 10^3/ul (0-0.2); ABS Eosinophils 0.3 10^3/ul (0-0.6); ABS Lymphocytes 1.2 10^3/ul (1.0-4.8); ABS Monocytes 0.6 10^3/ul (0-0.8); ABS Neutrophils 3.7 10^3/ul (1.5-7.7); ABS Nucleated RBC 0 10^3/ul; Eosinophil % 4.6 %; Hematocrit 25 % (33-41); Hemoglobin 8.5 g/dL (12.0-16.0); Mean Corpuscular HGB Conc 34 g/dL (31-36); Mean Corpuscular Hemoglobin 30 pg (27-31); Mean Corpuscular Volume 91 fL (80-97); Mean Platelet Volume 6.9 fL (7.4-10.4); Nucleated Red Blood Cells % 0; Platelet Count 197 10^3/uL (150-450); Red Cell Distribution Width 13 % (10.5-15); White Blood Count 5.9 10^3/uL (3.5-10.8)
[2019-02-20 06:20] LABS: Albumin 3.2 g/dL (3.2-5.2); Albumin/Globulin Ratio 1.3 (1-3); BUN/Creatinine Ratio 16.2 (8-20); Calcium 8.7 mg/dL (8.6-10.3); EGFR African American 107.9 (>60); EGFR Non-African American 89.2 (>60); Globulin 2.5 g/dL (2-4); Potassium 3.5 mmol/L (3.5-5.0); Total Bilirubin 0.8 mg/dL (0.2-1.0); Total Protein 5.7 g/dL (6.4-8.9)
[2019-02-20] MEDS: Docusate CAP* 100 MG PO SCH ×2 (08:43→20:00)
[2019-02-20] MEDS: Apixaban* 2.5 MG TAB PO SCH ×2 (08:43→20:00)
[2019-02-20] MEDS: Bisacodyl SUPP* 10 MG SUPP PR PRN (08:43)
--- NOTE | 2019-02-20 12:50 | PMRUTEAM ---
PMRU: Team Meeting Current Status: Nursing: Current Status Skin Deviations [Bilateral Bruise,Other Medial Proximal Thigh] Skin Deviations [Bilateral Incision Knee] Skin Deviation Description [ Bruise, redness, worse to L thigh Bilateral Medial Proximal Thigh] Skin Deviation Description [ well approximated Bilateral Knee] Physical Therapy: Current Status Bed Mobility Assistance Independent Transfer Mobility Assistance Contact Guard Assist Transfer/Bed Mobility Rolling Walker Recommended Devices Ambulation Assistance Contact Guard Assist Ambulation Assistive Devices Rolling Walker Number of Feet Patient 100 Ambulated Stairs Assistance Independent Stairs Recommended Devices Straight Cane,One Rail Number of Stairs flight Occupational Therapy: Current Status Upper Body Dressing Supervision Lower Body Dressing Min Assist Bathing Supervision Toileting Min Assist Toilet Transfer Min Assist Shower Transfer Contact Guard Assist Eating Independent Rec Therapy: Current Status Summary of Assessment and Pt. was open to conversation - very engaged Clinical Impression throughout. Pt. identified with numerous interests and active involvement in them prior to admission. Pt. is very excited to get back to her hobbies and interestes. Pt. was willing to take part in activities while on the unit. Treatment Goals Pt. will engage in leisure activities. Treatment Plan Provide recreation therapy and encourage involvement. Social Work: Current Status Discharge Plan return home with home care services and family support Potential for Family Training pt's is involved and supportive Anticipated Discharge Home Destination Discharge With home care services and family support Goals: Physical Therapy: Updated Goals Transfer/Bed Mobility Rolling Walker Recommended Devices Occupational Therapy: Initial Goals Goals to be Completed in (Days 7 ) Upper Body Bathing Routine Independent Lower Body Bathing Routine Modified Independent with Upper Body Dressing Routine Independent Lower Body Dressing Routine Modified Independent with Toilet Hygeine and Clothing Modified Independent with Management Routine Toilet Transfer Routine Modified Independent with Step-In Shower Transfer Supervision/Set Up Routine Functional Transfers for ADL Modified Independent with Grooming Routine Independent Feeding Routine Independent Social Work: Goals Discharge Plan return home with home care services and family support Potential for Family Training pt's is involved and supportive Anticipated Discharge Home Destination Discharge With home care services and family support Care Plan: Care Plan ADL's - Improve/Maintain Start: 02/17/19 13:53 Freq: DAILY Status: Active Target: Protocol: Activity Type Activity Date Activity User E-Sign Co-Sign Detail Recorded Client Recorded Date Recorded By Document 02/18/19 12:41 [id number] 02/18/19 12:41 [id number] 02/18/19 12:41 PMRU Outcome: ADL's/ADL Transfers Orders/Interventions Occupational Therapy Evaluation & Treatment Communication Tool in Patient Room Device Yes Patient to receive OT 5x/wk for 60-120 Therex min/day Self Care Management Group Therapy UE/LE ADL's with Assist Yes: mod I ADL Transfers with Assist Yes: mod I Toileting: Transfers,Clothing Management Yes: mod I ,Hygeine w/Assist Light Kitchen/Laundry w/Assist Yes Progression Toward Outcome/Goals Progressing Outcome/Goals Met Pt participated well, able to thread underwear and pants without use of AE and completed bathing seated with supervision. Discharge Planning Start: 02/18/19 21:46 Freq: DAILY@0400,1600 Status: Active Target: Protocol: Activity Type Activity Date Activity User E-Sign Co-Sign Detail Recorded Client Recorded Date Recorded By Document 02/20/19 04:00 [id number] 02/20/19 05:52 [id number] 02/20/19 04:00 Outcome: Discharge Planning Outcome/Goals Demonstrates Understanding of Discharge Plan Progression Toward Outcome/Goals Progressing Infection-Improve/Maintain Start: 02/18/19 21:46 Freq: DAILY@0400,1600 Status: Active Target: Protocol: Activity Type Activity Date Activity User E-Sign Co-Sign Detail Recorded Client Recorded Date Recorded By Document 02/20/19 04:00 [id number] 02/20/19 05:52 [id number] 02/20/19 04:00 Outcome: Infection Outcome/Goals Remain Free of Infection Understand Infection Prevention Strategies Achieve Optimal Health Status Related to Diagnosis Progression Toward Outcome/Goals Progressing Mobility- Improve/Maintain Start: 02/17/19 15:09 Freq: DAILY Status: Active Target: Protocol: Activity Type Activity Date Activity User E-Sign Co-Sign Detail Recorded Client Recorded Date Recorded By Document 02/17/19 15:09 [id number] 02/17/19 15:10 [id number] 02/17/19 15:09 PMRU Outcome: Mobility Physical Therapy Evaluation and Yes Treatment Activity OOB with Assistance Yes WBAT Yes: Bilateral LE Device Yes Assistance Yes Patient to be seen 5x/wk for 60-120 min/ Therex day for: Mobility Training Gait Training Balance Other Therapy Comment ROM, education Outcome/Goals Maintain/ Achieve Baseline Mobility Status Improve Mobility Status Demonstrates Proper Use of Assistive Devices Free from Complications of Immobility Bed Mobility Yes: Independent Transfers Yes: Modified independent with RW Gait x ft Yes: Modified independent 150 ' with RW Up/Down Stairs Yes: Independent 12 steps 2 railings With HEP Yes: Independent Goal Comment B knee ROM 0-90 Medicine Note: Length of Stay: 2 days Anticipated Discharge Destination: Home Tentative Discharge Date: 02/22/19 Discharged to: Home
--- NOTE | 2019-02-20 17:37 | PN ---
Progress Note Date of Service: 02/20/19 Note: ELIZABETH MENDOZA was visited. Therapy notes read and reviewed. She was discussed in interdisciplinary plan of care rounds. She is moving fairly well and bowels moving, pain well controlled. Current Medications: Active Medications Generic Name Dose Route Start Last Admin Trade Name Freq PRN Reason Stop Dose Admin Acetaminophen 650 mg 02/17/19 13:05 Tylenol Tab* PO Q6H PRN FEVER/PAIN Apixaban 2.5 mg 02/17/19 21:00 02/20/19 08:43 Eliquis* PO 2.5 mg BID JANE Administration Bisacodyl 10 mg 02/18/19 17:01 02/20/19 08:43 Dulcolax Supp* [place] 10 mg DAILY PRN Administration CONSTIPATION Docusate Sodium 100 mg 02/17/19 21:00 02/20/19 08:43 Colace Cap* PO 100 mg BID JANE Administration Magnesium Hydroxide 30 ml 02/17/19 13:05 02/19/19 20:57 Milk Of Magnesia Liq* PO 30 ml Q6H PRN Administration CONSTIPATION Oxycodone/Acetaminophen 1 tab 02/17/19 13:11 Percocet 5/325 Tab* PO Q4H PRN PAIN - MODERATE TO SEVERE Oxycodone/Acetaminophen 2 tab 02/17/19 13:14 02/20/19 14:24 Percocet 5/325 Tab* PO 2 tab Q4H PRN Administration PAIN - SEVERE Senna 2 tab 02/18/19 21:00 02/19/19 20:56 Senokot Tab* PO 2 tab BEDTIME JANE Administration Vital Signs: Vital Signs Temp Pulse Resp BP Pulse Ox 98.8 F 85 18 127/77 99 02/20/19 16:06 02/20/19 16:06 02/20/19 16:06 02/20/19 16:06 02/20/19 16:06 Lab Results: Laboratory Results - last 24 hr 02/20/19 02/20/19 05:56 05:56 WBC 5.9 RBC 2.80 L Hgb 8.5 L Hct 25 L MCV 91 MCH 30 MCHC 34 RDW 13 Plt Count 197 MPV 6.9 L Neut % (Auto) 64.0 Lymph % (Auto) 21.0 Emmons % (Auto) 9.8 Eos % (Auto) 4.6 Baso % (Auto) 0.6 Absolute Neuts (auto) 3.7 Absolute Lymphs (auto) 1.2 Absolute Monos (auto) 0.6 Absolute Eos (auto) 0.3 Absolute Basos (auto) 0 Absolute Nucleated RBC 0 Nucleated RBC % 0 Sodium 138 Potassium 3.5 Chloride 101 Carbon Dioxide 31 Anion Gap 6 BUN 11 Creatinine 0.68 Est GFR ( Amer) 107.9 Est GFR (Non-Af Amer) 89.2 BUN/Creatinine Ratio 16.2 Glucose 117 H Calcium 8.7 Total Bilirubin 0.80 AST 48 H ALT 42 Alkaline Phosphatase 127 H Total Protein 5.7 L Albumin 3.2 Globulin 2.5 Albumin/Globulin Ratio 1.3 Exam: GENERAL: No distress LUNGS: Clear bilaterally HEART: reg rhythm ABDOMEN: Soft +BS EXTREMITIES: Wounds appear clean. Ecchymosis left thigh and right knee. Peripheral pulses intact NEUROLOGIC: A&O. Sensation intact. Able to move legs but painful; arms 5/5 bilaterally Assessment/Plan: 1. Bilateral TKA: WBAT. PT/OT 2. DVT prophylaxis: Eliquis 3. Constipation: MOM/Colace/Senna. Used Dulc Suppository and had BM today 4. Advanced Directives: Full code 02/20/19 17:38
[2019-02-20] MEDS: Senna TAB PO SCH (20:00)
[2019-02-21] MEDS: oxyCODONE/Acetamin 5/325 MG* TAB PO PRN ×6 (00:37→21:29)
[2019-02-21] MEDS: Docusate CAP* 100 MG PO SCH ×2 (08:38→21:30)
[2019-02-21] MEDS: Apixaban* 2.5 MG TAB PO SCH ×2 (08:38→21:28)
--- NOTE | 2019-02-21 12:56 | PMRUTEAM ---
PMRU: Team Meeting Current Status: Nursing: Current Status Skin Deviations [L calf] Bruise Skin Deviations [Bilateral Bruise,Other Medial Proximal Thigh] Skin Deviations [Bilateral Incision Knee] Skin Deviation Description [ Bruise, redness, worse to L thigh Bilateral Medial Proximal Thigh] Skin Deviation Description [ cryos in place Bilateral Knee] Bladder Current Status Continent- SBA and walker to bathroom. Bowel Current Status Continent- SBA and walker to bathroom. Nutrition Current Status Independent. Medication Current Status Pt verbalizes understanding of medication schedule . Physical Therapy: Current Status Bed Mobility Assistance Independent Transfer Mobility Assistance Independent Transfer/Bed Mobility Rolling Walker Recommended Devices Ambulation Assistance Independent Ambulation Assistive Devices Rolling Walker Number of Feet Patient 130 Ambulated Stairs Assistance Contact Guard Assist Stairs Recommended Devices One Rail Number of Stairs 5 Objective Comments Pt. ambulated a 4 inch step and a 7 inch step. she had difficulty stepping down forward due to the decrease ROM allowed in her knee. She was able to complete steps with less pain and discomfort when steping down backwards. Hip hike and circulduction was evident on both the 4in and the 7in step. Side steping with one rail was worked on with patient on the 7 inch stair and had more success. Patient however relied heavily on railing and UE support. Occupational Therapy: Current Status Upper Body Dressing Independent Lower Body Dressing Ind with Adaptive Equip Bathing Ind with Adaptive Equip Toileting Ind with Adaptive Equip Toilet Transfer Ind with Adaptive Equip Shower Transfer Ind with Adaptive Equip Eating Independent Rec Therapy: Current Status Summary of Assessment and Recreation Therapy assessment complete and pt. is Clinical Impression aware of services. Pt. is pleasant, cooperative and engaged. Pt. has numerous leisure activities in her room which she has been active in. Pt. has been open to leisure visits. Pt. also has daily visits from her family. Treatment Goals Pt. will engage in leisure activities. Treatment Plan Provide recreation therapy and encourage involvement. 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 Eating 75-90% of meals independently; no evidence difficulty chewing/ swallowing per nursing assessment so far. Labs reviewed; unremarkable. Receiving opiate pain meds and bowel meds; no BM recorded yet. On appropriate regular diet; no changes to suggest at this time. Full nutrition assessment to follow per protocol. Goals: Physical Therapy: Initial Goals Bed Mobility Assistance Independent Transfer Mobility Assistance Independent Transfer/Bed Mobility Rolling Walker Recommended Devices Ambulation Independent Ambulation Recommended Devices Rolling Walker Ambulation Distance 150 Stairs Assistance Independent Stair Recommended Devices One Rail Number of Stairs flight Home Exercise Program Independent Assistance Physical Therapy: Updated Goals Transfer/Bed Mobility Rolling Walker Recommended Devices Occupational Therapy: Initial Goals Goals to be Completed in (Days 7 ) Upper Body Bathing Routine Independent Lower Body Bathing Routine Modified Independent with Upper Body Dressing Routine Independent Lower Body Dressing Routine Modified Independent with Toilet Hygeine and Clothing Modified Independent with Management Routine Toilet Transfer Routine Modified Independent with Step-In Shower Transfer Supervision/Set Up Routine Functional Transfers for ADL Modified Independent with Grooming Routine Independent Feeding Routine Independent Nursing: Goals Bladder Goal Continent- Independent Bowel Goal Continent- Independent. Nutrition Goal Independent. Medication Goal Independent with medication administration Nutrition: Goals Intervention Goals 1. Intake will remain adequate to meet needs for post-op healing 2. Pt will establish and maintain regular bowel pattern without diarrhea/constipation Social Work: Goals Discharge Plan return home with home care svs and family support Potential for Family Training pt's is attentive and involved Anticipated Discharge Home Destination Discharge With Lifetime care and family support Care Plan: Care Plan ADL's - Improve/Maintain Start: 02/17/19 13:53 Freq: DAILY Status: Active Target: Protocol: Activity Type Activity Date Activity User E-Sign Co-Sign Detail Recorded Client Recorded Date Recorded By Document 02/18/19 12:41 [id number] 02/18/19 12:41 [id number] 02/18/19 12:41 PMRU Outcome: ADL's/ADL Transfers Orders/Interventions Occupational Therapy Evaluation & Treatment Communication Tool in Patient Room Device Yes Patient to receive OT 5x/wk for 60-120 Therex min/day Self Care Management Group Therapy UE/LE ADL's with Assist Yes: mod I ADL Transfers with Assist Yes: mod I Toileting: Transfers,Clothing Management Yes: mod I ,Hygeine w/Assist Light Kitchen/Laundry w/Assist Yes Progression Toward Outcome/Goals Progressing Outcome/Goals Met Pt participated well, able to thread underwear and pants without use of AE and completed bathing seated with supervision. Discharge Planning Start: 02/18/19 21:46 Freq: DAILY@0400,1600 Status: Complete Target: Protocol: Activity Type Activity Date Activity User E-Sign Co-Sign Detail Recorded Client Recorded Date Recorded By Document 02/20/19 16:00 [id number] [id number] 02/20/19 19:37 [id number] 02/20/19 16:00 Outcome: Discharge Planning Outcome/Goals Demonstrates Understanding of Discharge Plan Necessary Services Arranged for Post Discharge Care Progression Toward Outcome/Goals Progressing Discharge Planning - Improve/Maintain Start: 02/20/19 21:46 Freq: DAILY Status: Active Target: Protocol: Activity Type Activity Date Activity User E-Sign Co-Sign Detail Recorded Client Recorded Date Recorded By Document 02/21/19 02:11 [id number] 02/21/19 02:11 [id number] 02/21/19 02:11 PMRU Outcome: Discharge Planning Update Patient Family No Outcome/Goals Demonstrates Understanding of Discharge Plan Infection-Improve/Maintain Start: 02/18/19 21:46 Freq: DAILY@0400,1600 Status: Active Target: Protocol: Activity Type Activity Date Activity User E-Sign Co-Sign Detail Recorded Client Recorded Date Recorded By Document 02/21/19 02:11 [id number] [id number] 02/21/19 02:11 [id number] 02/21/19 02:11 Outcome: Infection Outcome/Goals Remain Free of Infection Mobility- Improve/Maintain Start: 02/17/19 15:09 Freq: DAILY Status: Active Target: Protocol: Activity Type Activity Date Activity User E-Sign Co-Sign Detail Recorded Client Recorded Date Recorded By Document 02/17/19 15:09 [id number] 02/17/19 15:10 [id number] 02/17/19 15:09 PMRU Outcome: Mobility Physical Therapy Evaluation and Yes Treatment Activity OOB with Assistance Yes WBAT Yes: Bilateral LE Device Yes Assistance Yes Patient to be seen 5x/wk for 60-120 min/ Therex day for: Mobility Training Gait Training Balance Other Therapy Comment ROM, education Outcome/Goals Maintain/ Achieve Baseline Mobility Status Improve Mobility Status Demonstrates Proper Use of Assistive Devices Free from Complications of Immobility Bed Mobility Yes: Independent Transfers Yes: Modified independent with RW Gait x ft Yes: Modified independent 150 ' with RW Up/Down Stairs Yes: Independent 12 steps 2 railings With HEP Yes: Independent Goal Comment B knee ROM 0-90 Pain/Comfort- Improve/Maintain Start: 02/20/19 21:46 Freq: QSHIFT Status: Active Target: Protocol: Activity Type Activity Date Activity User E-Sign Co-Sign Detail Recorded Client Recorded Date Recorded By Document 02/21/19 02:11 [id number] [id number] 02/21/19 02:11 [id number] 02/21/19 02:11 PMRU Outcome: Pain/Comfort Outcome/Goals Demonstrates Knowledge and Use of Available Comfort Measures Achieves Acceptable Comfort/Pain Level as Determined by Patient/Condit Maintain Comfort Level Allowing Patient to Fully Participate in Rehab Outcome/Goals Met Comment pain medication given Safety- Improve/Maintain Start: 02/20/19 21:46 Freq: QSHIFT Status: Active Target: Protocol: Activity Type Activity Date Activity User E-Sign Co-Sign Detail Recorded Client Recorded Date Recorded By Document 02/21/19 02:11 [id number] [id number] 02/21/19 02:11 [id number] 02/21/19 02:11 PMRU Outcome: Safety Outcome/Goals Remain Free of Injury or Harm Prevent Falls/ Injury Skin- Improve/Maintain Start: 02/20/19 21:46 Freq: QSHIFT Status: Active Target: Protocol: Activity Type Activity Date Activity User E-Sign Co-Sign Detail Recorded Client Recorded Date Recorded By Document 02/21/19 02:11 [id number] [id number] 02/21/19 02:11 [id number] 02/21/19 02:11 PMRU Outcome: Skin Skin Risk Level Medium Skin Orders Dressing Change Outcome/Goals Maintain/ Improve Skin Intergrity Surgical Incisions Healing Medicine Note: Length of Stay: 1 day Anticipated Discharge Destination: Home Tentative Discharge Date: 02/22/19 Discharged to: Home
--- NOTE | 2019-02-21 17:40 | PN ---
Progress Note Date of Service: 02/21/19 Note: ELIZABETH MENDOZA was visited. Therapy notes read and reviewed. She was discussed in interdisciplinary team rounds. She is reporting some altered sensation on her medial calf on the left leg which I suspect is from the hematoma. She is supposed to go home tomorrow Current Medications: Active Medications Generic Name Dose Route Start Last Admin Trade Name Freq PRN Reason Stop Dose Admin Acetaminophen 650 mg 02/17/19 13:05 Tylenol Tab* PO Q6H PRN FEVER/PAIN Apixaban 2.5 mg 02/17/19 21:00 02/21/19 08:38 Eliquis* PO 2.5 mg BID JANE Administration Bisacodyl 10 mg 02/18/19 17:01 02/20/19 08:43 Dulcolax Supp* NM 10 mg DAILY PRN Administration CONSTIPATION Docusate Sodium 100 mg 02/17/19 21:00 02/21/19 08:38 Colace Cap* PO 100 mg BID JANE Administration Magnesium Hydroxide 30 ml 02/17/19 13:05 02/19/19 20:57 Milk Of Magnesia Liq* PO 30 ml Q6H PRN Administration CONSTIPATION Oxycodone/Acetaminophen 1 tab 02/17/19 13:11 Percocet 5/325 Tab* PO Q4H PRN PAIN - MODERATE TO SEVERE Oxycodone/Acetaminophen 2 tab 02/17/19 13:14 02/21/19 17:37 Percocet 5/325 Tab* PO 2 tab Q4H PRN Administration PAIN - SEVERE Senna 2 tab 02/18/19 21:00 02/20/19 20:00 Senokot Tab* PO 2 tab BEDTIME JANE Administration Vital Signs: Vital Signs Temp Pulse Resp BP Pulse Ox 99.4 F 88 18 133/78 100 02/21/19 14:45 02/21/19 14:45 02/21/19 17:37 02/21/19 14:45 02/21/19 16:45 Exam: GENERAL: No distress LUNGS: Clear bilaterally HEART: reg rhythm ABDOMEN: Soft +BS EXTREMITIES: Wounds appear clean. Ecchymosis left thigh and right knee. Peripheral pulses intact NEUROLOGIC: A&O. Sensation intact. Able to move legs but painful; arms 5/5 bilaterally Assessment/Plan: 1. Bilateral TKA: WBAT. PT/OT 2. DVT prophylaxis: Eliquis 3. Constipation: MOM/Colace/Senna. Dulc Suppository 4. Advanced Directives: Full code 5. Hematoma: Check Hb/Hct in am 02/21/19 17:41
[2019-02-21] MEDS: Senna TAB PO SCH (21:29)
[2019-02-22] MEDS: oxyCODONE/Acetamin 5/325 MG* TAB PO PRN ×3 (01:48→13:00)
[2019-02-22 05:02] VITALS: BP 129/70
[2019-02-22 05:14] LABS: ABS Basophils 0 10^3/ul (0-0.2); ABS Eosinophils 0.3 10^3/ul (0-0.6); ABS Lymphocytes 1.5 10^3/ul (1.0-4.8); ABS Monocytes 0.6 10^3/ul (0-0.8); ABS Nucleated RBC 0 10^3/ul; Eosinophil % 4.9 %; Hematocrit 26 % (33-41); Hemoglobin 8.8 g/dL (12.0-16.0); Lymphocyte % 23.3 %; Mean Corpuscular HGB Conc 34 g/dL (31-36); Mean Corpuscular Hemoglobin 31 pg (27-31); Mean Corpuscular Volume 91 fL (80-97); Mean Platelet Volume 7.1 fL (7.4-10.4); Nucleated Red Blood Cells % 0; Platelet Count 262 10^3/uL (150-450); Red Blood Count 2.85 10^6 /uL (3.70-4.87); Red Cell Distribution Width 14 % (10.5-15); White Blood Count 6.5 10^3/uL (3.5-10.8)
[2019-02-22] MEDS: Docusate CAP* 100 MG PO SCH (08:32)
[2019-02-22] MEDS: Apixaban* 2.5 MG TAB PO SCH (08:32)
[2019-02-22] MEDS: Bisacodyl SUPP* 10 MG SUPP PR PRN (10:37)
== END 2019-02-22 13:00 | disposition home health service (06) | DRG 860 ==
LOC: PMRU 12:34
PROVIDERS: ADMIT Physical Medicine & Rehabilitation; ATTEND Physical Medicine & Rehabilitation
PROC: F07Z5ZZ Bed Mobility Treatment (ICD-10-PCS; principal; 2019-02-17)
PROC: F07Z9ZZ Gait Training/Functional Ambulation Treatment (ICD-10-PCS; 2019-02-17)
PROC: F07Z8ZZ Transfer Training Treatment (ICD-10-PCS; 2019-02-17)
PROC: F08Z0ZZ Bathing/Showering Techniques Treatment (ICD-10-PCS; 2019-02-17)
PROC: F08Z1ZZ Dressing Techniques Treatment (ICD-10-PCS; 2019-02-17)
PROC: F08Z3ZZ Feeding/Eating Treatment (ICD-10-PCS; 2019-02-17)
DX: Z47.1 Aftercare following joint replacement surgery (principal); M96.840 Postprocedural hematoma of a musculoskeletal structure following a musculoskeletal system procedure; Z96.653 Presence of artificial knee joint, bilateral; I44.7 Left bundle-branch block, unspecified; K59.00 Constipation, unspecified; R58 Hemorrhage, not elsewhere classified
CPT/HCPCS: 36415; 80053; 85025; A9270-GY